=== PATIENT | female | born 1955 | race Caucasian/White ===

== ENCOUNTER 2021-05-04 15:02 | Inpatient (IN) | payer OTHER, SELFPAY ==
--- NOTE | ~2021-05-04 | XR_ITS ---
EXAMINATION: XR CHEST CLINICAL INFORMATION: Psych COMPARISON: None TECHNIQUE: Frontal portable view of the chest was obtained. 5:49 PM FINDINGS: Lungs are clear. No pulmonary vascular congestion. There is no pleural effusion. The heart size is normal. The cardiac and mediastinal contours are normal. There are calcifications of the thoracic aorta. There are multilevel degenerative changes of dorsal spine. Surgical clips right upper quadrant of abdomen. XR/XR chest 1V IMPRESSION: Unremarkable examination.
--- NOTE | ~2021-05-04 | CT_ITS ---
EXAMINATION: CT HEAD WITHOUT CONTRAST CLINICAL INFORMATION: AMS. COMPARISON: None TECHNIQUE: Contiguous axial imaging was performed from the skull base to vertex without intravenous administration of contrast. This CT examination was performed using dose optimization techniques as appropriate, variously including the following: *Automated exposure control *Adjustment of mA and/or kV according to patient size (this includes techniques or standardized protocols for targeted exams where dose is matched to indication/reason for exam; i.e. extremities or head) *Use of iterative reconstruction technique DLP: 692 mGy-cm FINDINGS: There is no acute intra-axial, extra-axial bleed, masses or midline shift. There is no acute infarction in evolution. There is diffuse peripheral reticular hypodensity in both several hemispheres without mass effect. No edema. The lateral ventricles are symmetrical in size and are enlarged. Mild prominence of cortical sulci are seen. Bone windows reveal no calvarial abnormality. Bilateral paranasal sinuses and mastoid air cells are well aerated. CT/CT head/brain wo con IMPRESSION: No acute intracranial process seen. 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
[2021-05-04 15:04] VITALS: BP 163/89; PULSE 125; RESP 24; TEMP 36.8; O2SAT 95; BMI 29.5
--- NOTE | 2021-05-04 15:21 | PC.NURSE ---
HCP Sukhi (daughter in [place]) paperwork with pt, phone [phone], call for history
--- NOTE | 2021-05-04 15:24 | ECG_ITS ---
Test Reason : OVERDOSE Blood Pressure : / mmHG Vent. Rate : 111 BPM Atrial Rate : 111 BPM P-R Int : 164 ms QRS Dur : 082 ms QT Int : 342 ms P-R-T Axes : 045 016 056 degrees QTc Int : 465 ms Sinus tachycardia Cannot rule out Inferior infarct , age undetermined Cannot rule out Anterior infarct , age undetermined Abnormal ECG No previous ECGs available Referred By: Shalini Orourke Electronically Signed By:JSOÉ LYNCH
[2021-05-04 15:56] LABS: MANUAL DIFF FLAG NO
[2021-05-04 16:00] LABS: Basophils Percent Auto 0.5 % (0-2); Eosinophils Percent Auto 0.1 % (0-4); Hematocrit 44.1 % (37-47); Hemoglobin 14.2 g/dl (12.0-16.0); Imm Gran Abs Auto 0.02 X10*3/uL (0.00-0.03); Imm Gran Pct Auto 0.3 % (0.0-0.4); Lymphocytes Absolute Auto 1.7 X10*3/uL (1.2-4.9); Lymphocytes Percent Auto 22.9 % (20-40); Mean Corpuscular HGB Conc 32.2 g/dl (31.0-35.0); Mean Corpuscular Volume 80.6 fL (80-98); Mean Platelet Volume 9.3 fL (9.4-12.3); Monocytes Absolute Auto 0.5 X10*3/uL (0.1-1.2); Monocytes Percent Auto 6.2 % (2-11); Neutrophils Absolute Auto 5.2 X10*3/uL (2.0-8.3); Platelet Count 295 X10*3/uL (160-400); Red Blood Count 5.47 X10*6/uL (4.20-5.50); Red Cell Distribution Width 13.2 % (11.0-16.0); White Blood Count 7.4 X10*3/uL (4.8-10.8)
[2021-05-04 16:03] LABS: VBG Base Excess -5.1 mmol/L; VBG HCO3 18 mmol/L (22-26); VBG pCO2 29 mmHg; VBG pH 7.39 (7.32-7.43); VBG pO2 40 mmHg
[2021-05-04 16:04] LABS: Venous Blood Gas Refer to POC result
[2021-05-04] MEDS: LORazepam 2 MG/ML VIAL IVPUSH (16:04)
[2021-05-04] MEDS: 0.9 % Sodium Chloride 1,000 ML 999 ML IVCONT (16:06)
[2021-05-04 16:17] LABS: COVID-19 Test Negative (Negative); IDNOW Serial# 9DD0AD1C
[2021-05-04 16:30] LABS: Ammonia 27 umol/L (13-55)
[2021-05-04 16:30] LABS: Ethanol < 10 mg/dL
[2021-05-04 16:35] LABS: Alanine Aminotransferase 9 U/L (0-31); Albumin Level 4.7 g/dL (3.5-5.0); Alkaline Phosphatase 120 U/L (39-117); Aspartate Amino Transferase 16 U/L (5-31); Bilirubin Direct 0.3 mg/dL (0.0-0.5); Bilirubin Total 0.7 mg/dL (0.0-1.0); Lipase 29 U/L (8-78); Magnesium 1.8 mg/dL (1.6-2.6); Salicylate < 5.0 mg/dL (15-30); Total Protein 7.5 g/dL (6.5-8.0)
[2021-05-04 16:40] LABS: Acetaminophen LAB < 1 mcg/mL (<30); Anion Gap 22 (12-20); Blood Urea Nitrogen 8 mg/dL (9-16); Calcium 9.9 mg/dL (8.4-10.2); Carbon Dioxide 18 mmol/L (22-29); Chloride 103 mmol/L (96-108); Estimated Glomerular Filt Rate > 60; Glucose Random 130 mg/dL (60-115); Potassium 3.9 mmol/L (3.3-5.1); Sodium 139 mmol/L (135-145)
[2021-05-04 16:56] LABS: TSH reflex Free T4 0.92 uIU/mL (0.32-4.0)
--- NOTE | 2021-05-04 17:39 | ED_ITS ---
HPI - Psych General Chief Complaint: Psychiatric Symptoms <ROBERTO CARLOS Pollock - Last Filed: 05/04/21 18:00> Stated Complaint: MED OVERDOSE <ROBERTO CARLOS Pollock Last Filed: 05/04/21 18:00> Time Seen by Provider: 05/04/21 15:23 <ROBERTO CARLOS Pollock Last Filed: 05/04/21 18:00> Source: patient and family <ROBERTO CARLOS Pollock Last Filed: 05/04/21 18:00> Mode of arrival: ambulatory <ROBERTO CARLOS Pollock Last Filed: 05/04/21 18:00> History of Present Illness HPI Narrative: 66-year-old female with past medical history of unknown psychiatric diagnosis's, presenting to the ED brought in by sister for medication noncompliance x2 weeks, visual and auditory hallucinations, increased confusion/outbursts. Sister reports patient recently moved from [place], does not know her medical history, believes patient has been noncompliant with her p sychiatric medications however has been misusing Klonopin/benzos and possibly opiates. Patient denies SI/HI. Admits to marijuana use, denies other illicit substances or EtOH. Denies CP/SOB, abdominal pain past nausea/vomiting. Patient herself denies misusing medications/missing doses of medications. <ROBERTO CARLOS Pollock Last Filed: 05/04/21 18:00> Related Data Allergies/Adverse Reactions: Allergies Allergy/AdvReac Type Severity Reaction Status Date / Time No Known Allergies Allergy Verified 05/04/21 15:15 <ROBERTO CARLOS Pollock Last Filed: 05/04/21 18:00> Review of Systems Review of Systems: Constitutional: No Fever, No Chills Cardiovascular: No Chest Pain, No SOB Respiratory: No Cough Gastrointestinal: No Nausea, No Vomiting, No Diarrhea, No Abdominal pain Musculoskeletal: No joint pain, No Myalgias Skin: No Skin Lesions, No rash Neuro: No Weakness, No Numbness, No Headache Psych: No Anxiety/Panic, No Depression, No SI/HI, +AH/VH <ROBERTO CARLOS Pollock Last Filed: 05/04/21 18:00> Yes all other systems are reviewed and are negative <ROBERTO CARLOS Pollock Last Filed: 05/04/21 18:00> PMFSH Past Medical History Attestation statement: The following information was validated with the patient. <ROBERTO CARLOS Pollock - Last Filed: 05/04/21 18:00> Medical History: Medical History (Updated 05/04/21 @ 15:14 by Larisa De Paz) History of broken leg Hx of rheumatic fever Psychiatric diagnosis <ROBERTO CARLOS Pollock - Last Filed: 05/04/21 18:00> Surgical History: Surgical History (Updated 05/04/21 @ 15:14 by Larisa De Paz) H/O left knee surgery H/O lumbosacral spine surgery <ROBERTO CARLOS Pollock - Last Filed: 05/04/21 18:00> Social History Social History: Social History Advance Directives: Yes Advance Directives Information Provided: Yes Advance Directives on File: No <ROBERTO CARLOS Pollock - Last Filed: 05/04/21 18:00> Physical Exam Vital Signs: Vital Signs: Last Vital Signs Temp 97.5 F 05/04/21 20:16 Pulse 95 05/04/21 20:16 Resp 18 05/04/21 20:16 BP 151/83 H 05/04/21 20:16 Pulse Ox 96 05/04/21 20:16 Body Mass Index 29.5 <ROBERTO CARLOS Pollock - Last Filed: 05/04/21 18:00> Vital Signs: Last Vital Signs Temp 97.5 F 05/04/21 20:16 Pulse 95 05/04/21 20:16 Resp 18 05/04/21 20:16 BP 151/83 H 05/04/21 20:16 Pulse Ox 96 05/04/21 20:16 Body Mass Index 29.5 <ROBERTO CARLOS Rogers - Last Filed: 05/04/21 20:24> Const: General: cooperative <ROBERTO CARLOS Pollock - Last Filed: 05/04/21 18:00> Orientation/consciousness: oriented to person and oriented to place <ROBERTO CARLOS Pollock - Last Filed: 05/04/21 18:00> Limitations: no limitations <ROBERTO CARLOS Pollock - Last Filed: 05/04/21 18:00> HENMT: Head: Yes normal to inspection and Yes atraumatic <ROBERTO CARLOS Pollock - Last Filed: 05/04/21 18:00> Ears: hearing grossly normal bilaterally <Ekaterina Dheeraj RI - Last Filed: 05/04/21 18:00> General nose exam: Normal external nose present <Ekaterina Esqueda [facility] Last Filed: 05/04/21 18:00> Face and sinus: Yes normal facial exam <Ekaterina Esqueda [facility] Last Filed: 05/04/21 18:00> Eyes: General: appearance normal, both eyes and all related structures <Ekaterina Esqueda [facility] Last Filed: 05/04/21 18:00> EOM: EOMs intact bilaterally <Ekaterina Esqueda [facility] Last Filed: 05/04/21 18:00> Neck: Neck: Yes normal visual inspection and Yes no meningeal signs <Ekaterina Esqueda [facility] Last Filed: 05/04/21 18:00> Resp: Effort & Inspection: normal respiratory effort <Ekaterina Esqueda [facility] Last Filed: 05/04/21 18:00> Auscultation: clear to auscultation bilaterally, no crackles, no rales and no wheezes <Ekaterina Esqueda [facility] Last Filed: 05/04/21 18:00> Cardio: Rate: tachycardic <Ekaterina Esqueda [facility] Last Filed: 05/04/21 18:00> Heart sounds: S1 normal heart sound present and S2 normal heart sound present <Ekaterina Esqueda [facility] Last Filed: 05/04/21 18:00> GI: Inspection: Yes normal to inspection <Ekaterina Esqueda [facility] Last Filed: 05/04/21 18:00> Palpation (GI): Soft to palpation, nontender, no guarding and not rigid <Ekaterina Esqueda [facility] Last Filed: 05/04/21 18:00> Skin: Rashes: no rashes <Ekaterina Esqueda [facility] Last Filed: 05/04/21 18:00> Wounds: no wounds <Ekaterina Esqueda [facility] Last Filed: 05/04/21 18:00> Neuro: General: oriented to person, oriented to place, tone normal, moves all extremities, no meningeal signs and no focal motor deficits <Ekaterina Esqueda [facility] Last Filed: 05/04/21 18:00> Gait exam (Neuro): Normal gait present <ROBERTO CARLOS Pollock Last Filed: 05/04/21 18:00> Extrem: General: Yes normal to inspection <ROBERTO CARLOS Pollock Last Filed: 05/04/21 18:00> Psych: Speech and movement: Restless speech present <ROBERTO CARLOS Pollock Last Filed: 05/04/21 18:00> Thought process: Flight of ideas present and Tangential thought process present <ROBERTO CARLOS Pollock Last Filed: 05/04/21 18:00> Thought content: suicidality, no homicidality, Hallucination(s) present auditory and visual and Compulsions present (thought content) <ROBERTO CARLOS Pollock Last Filed: 05/04/21 18:00> Insight: Limited insight present (Psych) <ROBERTO CARLOS Pollock Last Filed: 05/04/21 18:00> Judgement: Limited judgement present (Psych) <ROBERTO CARLOS Pollock Last Filed: 05/04/21 18:00> Course Course Course Narrative: - no leukocytosis, H&H stable, mild anion gap of 22 - ammonia WNL, labs otherwise unremarkable -tox screen negative for salicylates, acetaminophen, and alcohol CT head/brain wo con IMPRESSION: No acute intracranial process seen. 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 -1800--ED care transferred to ROBERTO CARL[facility] pending drug screen, lactic, UA, and care team evaluation <ROBERTO CARLOS Pollock Last Filed: 05/04/21 18:00> Signed out from Ekaterina Esqueda PA-C. Mildly elevated anion gap noted, her lactic acid and VBG are unremarkable. She continues to be non-sensical, pacing around and hyperverbal. 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 She reportedly [facility] not [facility] and we are still awaiting records from the other health center in [place]. At this time patient is medic ally cleared. Seen by Brenda from the CARE team and a section [address] Physician observation started at 8:20pm. Patient placed in physician observation because patient is awaiting [facility] evaluation for the possible need of inpatient psych admission. At the time observation was started patient's vital signs were stable. Patient is alert. Neuro exam is non-focal. CV: RRR and lungs are clear. Will continue to monitor. Will also place a Psych consult for medication recommendations. <ROBERTO CARLOS Rogers - Last Filed: 05/04/21 20:24> Consultations Consultation #1: CARE team <ROBERTO CARLOS Rogers - Last Filed: 05/04/21 20:24> MDM - Psych MDM Narrative Medical decision making narrative: 66-year-old female with past medical history of unknown psychiatric diagnosis's, presenting to the ED brought in by sister for medication noncompliance x2 weeks, visual and auditory hallucinations, increased confusion/outbursts. On exam initially tachycardic, tachypneic, restless, having active auditory/visual hallucinations on exam, restless. Concern for medication noncompliance vs withdrawal from benzos. Rule out other me tabolic/infectious etiology and ICH/mass or panic causes Patient's records were requested from [facility]/facilities Plan: EKG, labs, UA, CXR, head CT, drug screen, care Team consult <ROBERTO CARLOS Pollock - Last Filed: 05/04/21 18:00> Lab Data Result diagrams: : 05/04/21 15:52 05/04/21 15:52 <ROBERTO CARLOS Pollock - Last Filed: 05/04/21 18:00> Labs: Lab Results 05/04/21 05/04/21 05/04/21 Range/Units 15:51 15:52 15:52 WBC 7.4 (4.8-10.8) X10*3/uL RBC 5.47 (4.20-5.50) X10*6/uL Hgb 14.2 (12.0-16.0) g/dl Hct 44.1 (37-47) % MCV 80.6 (80-98) fL MCH 26.0 L (27.0-33.0) pg MCHC 32.2 (31.0-35.0) g/dl RDW 13.2 (11.0-16.0) % Plt Count 295 (160-400) X10*3/uL MPV 9.3 L (9.4-12.3) fL Immature Gran % (Auto) 0.3 (0.0-0.4) % Neut % (Auto) 70.0 (45-73) % Lymph % (Auto) 22.9 (20-40) % [place] % (Auto) 6.2 (2-11) % Eos % (Auto) 0.1 (0-4) % Baso % (Auto) 0.5 (0-2) % Lymph # (Auto) 1.7 (1.2-4.9) X10*3/uL [place] # (Auto) 0.5 (0.1-1.2) X10*3/uL Eos # (Auto) 0.0 (0.0-0.4) X10*3/uL Baso # (Auto) 0.0 (0.0-0.2) X10*3/uL Abs Immat Gran (auto) 0.02 (0.00-0.03) X10*3/uL Absolute Neuts (auto) 5.2 (2.0-8.3) X10*3/uL Absolute Nucleated RBC 0.000 (0.0-0.012) X10*3/uL Nucleated RBC % (auto) 0.0 (0.0-0.2) /100WBC VBG pH (7.32-7.43) VBG pCO2 mmHg VBG pO2 mmHg VBG HCO3 (22-26) mmol/L VBG O2 Saturation % VBG Base Excess mmol/L Sodium 139 (135-145) mmol/L Potassium 3.9 (3.3-5.1) mmol/L Chloride 103 (96-108) mmol/L Carbon Dioxide 18 L (22-29) mmol/L Anion Gap 22 H (12-20) BUN 8 L (9-16) mg/dL Creatinine 0.83 (0.5-1.4) mg/dL Estim Creat Clear Calc 80.0 Estimated GFR > 60 Random Glucose 130 H (60-115) mg/dL Lactic Acid (0.5-2.0) mmol/L Calcium 9.9 (8.4-10.2) mg/dL Magnesium (1.6-2.6) mg/dL Total Bilirubin (0.0-1.0) mg/dL Direct Bilirubin (0.0-0.5) mg/dL AST (5-31) U/L ALT (0-31) U/L Alkaline Phosphatase (39-117) U/L Ammonia 27 (13-55) umol/L Total Protein (6.5-8.0) g/dL Albumin (3.5-5.0) g/dL Lipase (8-78) U/L TSH (0.32-4.0) uIU/mL Salicylates (15-30) mg/dL Acetaminophen < 1 (<30) mcg/mL Ethyl Alcohol mg/dL COVID-19 ([facility]) (Negative) COVID-19 Clin Com 05/04/21 05/04/21 05/04/21 Range/Units 15:52 15:52 15:52 WBC (4.8-10.8) X10*3/uL RBC (4.20-5.50) X10*6/uL Hgb (12.0-16.0) g/dl Hct (37-47) % MCV (80-98) fL MCH (27.0-33.0) pg MCHC (31.0-35.0) g/dl RDW (11.0-16.0) % Plt Count (160-400) X10*3/uL MPV (9.4-12.3) fL Immature Gran % (Auto) (0.0-0.4) % Neut % (Auto) (45-73) % Lymph % (Auto) (20-40) % [place] % (Auto) (2-11) % Eos % (Auto) (0-4) % Baso % (Auto) (0-2) % Lymph # (Auto) (1.2-4.9) X10*3/uL [place] # (Auto) (0.1-1.2) X10*3/uL Eos # (Auto) (0.0-0.4) X10*3/uL Baso # (Auto) (0.0-0.2) X10*3/uL Abs Immat Gran (auto) (0.00-0.03) X10*3/uL Absolute Neuts (auto) (2.0-8.3) X10*3/uL Absolute Nucleated RBC (0.0-0.012) X10*3/uL Nucleated RBC % (auto) (0.0-0.2) /100WBC VBG pH (7.32-7.43) VBG pCO2 mmHg VBG pO2 mmHg VBG HCO3 (22-26) mmol/L VBG O2 Saturation % VBG Base Excess mmol/L Sodium (135-145) mmol/L Potassium (3.3-5.1) mmol/L Chloride (96-108) mmol/L Carbon Dioxide (22-29) mmol/L Anion Gap (12-20) BUN (9-16) mg/dL Creatinine (0.5-1.4) mg/dL Estim Creat Clear Calc Estimated GFR Random Glucose (60-115) mg/dL Lactic Acid (0.5-2.0) mmol/L Calcium (8.4-10.2) mg/dL Magnesium 1.8 (1.6-2.6) mg/dL Total Bilirubin 0.7 (0.0-1.0) mg/dL Direct Bilirubin 0.3 (0.0-0.5) mg/dL AST 16 (5-31) U/L ALT 9 (0-31) U/L Alkaline Phosphatase 120 H (39-117) U/L Ammonia (13-55) umol/L Total Protein 7.5 (6.5-8.0) g/dL Albumin 4.7 (3.5-5.0) g/dL Lipase 29 (8-78) U/L TSH 0.92 (0.32-4.0) uIU/mL Salicylates < 5.0 L (15-30) mg/dL Acetaminophen (<30) mcg/mL Ethyl Alcohol < 10 mg/dL COVID-19 ([facility]) Negative (Negative) COVID-19 Clin Com See Note 05/04/21 05/04/21 Range/Units 15:55 19:26 WBC (4.8-10.8) X10*3/uL RBC (4.20-5.50) X10*6/uL Hgb (12.0-16.0) g/dl Hct (37-47) % MCV (80-98) fL MCH (27.0-33.0) pg MCHC (31.0-35.0) g/dl RDW (11.0-16.0) % Plt Count (160-400) X10*3/uL MPV (9.4-12.3) fL Immature Gran % (Auto) (0.0-0.4) % Neut % (Auto) (45-73) % Lymph % (Auto) (20-40) % [place] % (Auto) (2-11) % Eos % (Auto) (0-4) % Baso % (Auto) (0-2) % Lymph # (Auto) (1.2-4.9) X10*3/uL [place] # (Auto) (0.1-1.2) X10*3/uL Eos # (Auto) (0.0-0.4) X10*3/uL Baso # (Auto) (0.0-0.2) X10*3/uL Abs Immat Gran (auto) (0.00-0.03) X10*3/uL Absolute Neuts (auto) (2.0-8.3) X10*3/uL Absolute Nucleated RBC (0.0-0.012) X10*3/uL Nucleated RBC % (auto) (0.0-0.2) /100WBC VBG pH 7.39 (7.32-7.43) VBG pCO2 29 mmHg VBG pO2 40 mmHg VBG HCO3 18 L (22-26) mmol/L VBG O2 Saturation 70.0 % VBG Base Excess -5.1 mmol/L Sodium (135-145) mmol/L Potassium (3.3-5.1) mmol/L Chloride (96-108) mmol/L Carbon Dioxide (22-29) mmol/L Anion Gap (12-20) BUN (9-16) mg/dL Creatinine (0.5-1.4) mg/dL Estim Creat Clear Calc Estimated GFR Random Glucose (60-115) mg/dL Lactic Acid 1.6 (0.5-2.0) mmol/L Calcium (8.4-10.2) mg/dL Magnesium (1.6-2.6) mg/dL Total Bilirubin (0.0-1.0) mg/dL Direct Bilirubin (0.0-0.5) mg/dL AST (5-31) U/L ALT (0-31) U/L Alkaline Phosphatase (39-117) U/L Ammonia (13-55) umol/L Total Protein (6.5-8.0) g/dL Albumin (3.5-5.0) g/dL Lipase (8-78) U/L TSH (0.32-4.0) uIU/mL Salicylates (15-30) mg/dL Acetaminophen (<30) mcg/mL Ethyl Alcohol mg/dL COVID-19 ([facility]) (Negative) COVID-19 Clin Com <ROBERTO CARLOS Pollock - Last Filed: 05/04/21 18:00> Lab Results 05/04/21 05/04/21 05/04/21 Range/Units 15:51 15:52 15:52 WBC 7.4 (4.8-10.8) X10*3/uL RBC 5.47 (4.20-5.50) X10*6/uL Hgb 14.2 (12.0-16.0) g/dl Hct 44.1 (37-47) % MCV 80.6 (80-98) fL MCH 26.0 L (27.0-33.0) pg MCHC 32.2 (31.0-35.0) g/dl RDW 13.2 (11.0-16.0) % Plt Count 295 (160-400) X10*3/uL MPV 9.3 L (9.4-12.3) fL Immature Gran % (Auto) 0.3 (0.0-0.4) % Neut % (Auto) 70.0 (45-73) % Lymph % (Auto) 22.9 (20-40) % [place] % (Auto) 6.2 (2-11) % Eos % (Auto) 0.1 (0-4) % Baso % (Auto) 0.5 (0-2) % Lymph # (Auto) 1.7 (1.2-4.9) X10*3/uL [place] # (Auto) 0.5 (0.1-1.2) X10*3/uL Eos # (Auto) 0.0 (0.0-0.4) X10*3/uL Baso # (Auto) 0.0 (0.0-0.2) X10*3/uL Abs Immat Gran (auto) 0.02 (0.00-0.03) X10*3/uL Absolute Neuts (auto) 5.2 (2.0-8.3) X10*3/uL Absolute Nucleated RBC 0.000 (0.0-0.012) X10*3/uL Nucleated RBC % (auto) 0.0 (0.0-0.2) /100WBC VBG pH (7.32-7.43) VBG pCO2 mmHg VBG pO2 mmHg VBG HCO3 (22-26) mmol/L VBG O2 Saturation % VBG Base Excess mmol/L Sodium 139 (135-145) mmol/L Potassium 3.9 (3.3-5.1) mmol/L Chloride 103 (96-108) mmol/L Carbon Dioxide 18 L (22-29) mmol/L Anion Gap 22 H (12-20) BUN 8 L (9-16) mg/dL Creatinine 0.83 (0.5-1.4) mg/dL Estim Creat Clear Calc 80.0 Estimated GFR > 60 Random Glucose 130 H (60-115) mg/dL Lactic Acid (0.5-2.0) mmol/L Calcium 9.9 (8.4-10.2) mg/dL Magnesium (1.6-2.6) mg/dL Total Bilirubin (0.0-1.0) mg/dL Direct Bilirubin (0.0-0.5) mg/dL AST (5-31) U/L ALT (0-31) U/L Alkaline Phosphatase (39-117) U/L Ammonia 27 (13-55) umol/L Total Protein (6.5-8.0) g/dL Albumin (3.5-5.0) g/dL Lipase (8-78) U/L TSH (0.32-4.0) uIU/mL Salicylates (15-30) mg/dL Acetaminophen < 1 (<30) mcg/mL Ethyl Alcohol mg/dL COVID-19 ([facility]) (Negative) COVID-19 Clin Com 05/04/21 05/04/21 05/04/21 Range/Units 15:52 15:52 15:52 WBC (4.8-10.8) X10*3/uL RBC (4.20-5.50) X10*6/uL Hgb (12.0-16.0) g/dl Hct (37-47) % MCV (80-98) fL MCH (27.0-33.0) pg MCHC (31.0-35.0) g/dl RDW (11.0-16.0) % Plt Count (160-400) X10*3/uL MPV (9.4-12.3) fL Immature Gran % (Auto) (0.0-0.4) % Neut % (Auto) (45-73) % Lymph % (Auto) (20-40) % [place] % (Auto) (2-11) % Eos % (Auto) (0-4) % Baso % (Auto) (0-2) % Lymph # (Auto) (1.2-4.9) X10*3/uL [place] # (Auto) (0.1-1.2) X10*3/uL Eos # (Auto) (0.0-0.4) X10*3/uL Baso # (Auto) (0.0-0.2) X10*3/uL Abs Immat Gran (auto) (0.00-0.03) X10*3/uL Absolute Neuts (auto) (2.0-8.3) X10*3/uL Absolute Nucleated RBC (0.0-0.012) X10*3/uL Nucleated RBC % (auto) (0.0-0.2) /100WBC VBG pH (7.32-7.43) VBG pCO2 mmHg VBG pO2 mmHg VBG HCO3 (22-26) mmol/L VBG O2 Saturation % VBG Base Excess mmol/L Sodium (135-145) mmol/L Potassium (3.3-5.1) mmol/L Chloride (96-108) mmol/L Carbon Dioxide (22-29) mmol/L Anion Gap (12-20) BUN (9-16) mg/dL Creatinine (0.5-1.4) mg/dL Estim Creat Clear Calc Estimated GFR Random Glucose (60-115) mg/dL Lactic Acid (0.5-2.0) mmol/L Calcium (8.4-10.2) mg/dL Magnesium 1.8 (1.6-2.6) mg/dL Total Bilirubin 0.7 (0.0-1.0) mg/dL Direct Bilirubin 0.3 (0.0-0.5) mg/dL AST 16 (5-31) U/L ALT 9 (0-31) U/L Alkaline Phosphatase 120 H (39-117) U/L Ammonia (13-55) umol/L Total Protein 7.5 (6.5-8.0) g/dL Albumin 4.7 (3.5-5.0) g/dL Lipase 29 (8-78) U/L TSH 0.92 (0.32-4.0) uIU/mL Salicylates < 5.0 L (15-30) mg/dL Acetaminophen (<30) mcg/mL Ethyl Alcohol < 10 mg/dL COVID-19 ([facility]) Negative (Negative) COVID-19 Clin Com See Note 05/04/21 05/04/21 Range/Units 15:55 19:26 WBC (4.8-10.8) X10*3/uL RBC (4.20-5.50) X10*6/uL Hgb (12.0-16.0) g/dl Hct (37-47) % MCV (80-98) fL MCH (27.0-33.0) pg MCHC (31.0-35.0) g/dl RDW (11.0-16.0) % Plt Count (160-400) X10*3/uL MPV (9.4-12.3) fL Immature Gran % (Auto) (0.0-0.4) % Neut % (Auto) (45-73) % Lymph % (Auto) (20-40) % [place] % (Auto) (2-11) % Eos % (Auto) (0-4) % Baso % (Auto) (0-2) % Lymph # (Auto) (1.2-4.9) X10*3/uL [place] # (Auto) (0.1-1.2) X10*3/uL Eos # (Auto) (0.0-0.4) X10*3/uL Baso # (Auto) (0.0-0.2) X10*3/uL Abs Immat Gran (auto) (0.00-0.03) X10*3/uL Absolute Neuts (auto) (2.0-8.3) X10*3/uL Absolute Nucleated RBC (0.0-0.012) X10*3/uL Nucleated RBC % (auto) (0.0-0.2) /100WBC VBG pH 7.39 (7.32-7.43) VBG pCO2 29 mmHg VBG pO2 40 mmHg VBG HCO3 18 L (22-26) mmol/L VBG O2 Saturation 70.0 % VBG Base Excess -5.1 mmol/L Sodium (135-145) mmol/L Potassium (3.3-5.1) mmol/L Chloride (96-108) mmol/L Carbon Dioxide (22-29) mmol/L Anion Gap (12-20) BUN (9-16) mg/dL Creatinine (0.5-1.4) mg/dL Estim Creat Clear Calc Estimated GFR Random Glucose (60-115) mg/dL Lactic Acid 1.6 (0.5-2.0) mmol/L Calcium (8.4-10.2) mg/dL Magnesium (1.6-2.6) mg/dL Total Bilirubin (0.0-1.0) mg/dL Direct Bilirubin (0.0-0.5) mg/dL AST (5-31) U/L ALT (0-31) U/L Alkaline Phosphatase (39-117) U/L Ammonia (13-55) umol/L Total Protein (6.5-8.0) g/dL Albumin (3.5-5.0) g/dL Lipase (8-78) U/L TSH (0.32-4.0) uIU/mL Salicylates (15-30) mg/dL Acetaminophen (<30) mcg/mL Ethyl Alcohol mg/dL COVID-19 ([facility]) (Negative) COVID-19 Clin Com <ROBERTO CARLOS Rogers - Last Filed: 05/04/21 20:24>
[2021-05-04] MEDS: LORazepam 2 MG/ML VIAL 1 MG IVPUSH (18:02)
--- NOTE | 2021-05-04 18:04 | MHC.CARE ---
Pt has [employer] Medicare PPO and will be evaluated by the CARE team.
[2021-05-04 20:06] LABS: Lactic Acid 1.6 mmol/L (0.5-2.0)
[2021-05-04 20:16] VITALS: BP 151/83; PULSE 95; RESP 18; TEMP 36.4; O2SAT 96
--- NOTE | 2021-05-04 20:22 | MHC.CARE ---
CARE team completed evaluation. Disposition is for inpt psychiatric treatment. Plan of care reviewed with ED physician and Sect 12a has been completed and placed in pt's chart for containment pending admission. Pt is a [place] and had been connected with services through the [facility] and [facility] in [place] prior to relocating to [place] in February. 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 [facility] in [place] contacted next and will be faxing a form to be completed and returned with assessments and medical documentation for the [facility] doctor to review for possible admission.
--- NOTE | 2021-05-04 20:53 | PC.NURSE ---
Patient just got transferred from main ED, patient is upset for being here in the POD, care team had assessed the patient, disposition section [facility] bed search, will continue to monitor.
--- NOTE | 2021-05-04 21:28 | PC.NURSE ---
Patient recently moved to the area no pharmacy claim history, sister Jessica called, read all the medications patient is on, list was read back to the sister, then confirms it. Med rec updated.
[2021-05-04] MEDS: LORazepam 1 MG TABLET PO (21:37)
[2021-05-04] MEDS: OLANZapine 5 MG TABLET PO (21:37)
[2021-05-04] MEDS: busPIRone HCl 5 MG TABLET 15 MG PO (21:42)
[2021-05-04] MEDS: hydrOXYzine HCL 50 MG TABLET 100 MG PO (21:43)
--- NOTE | 2021-05-04 22:14 | MHC.CARE ---
Referral packet faxed to [facility] for review.
[2021-05-05] VITALS (8 sets, daily range): BP systolic 143–154; BP diastolic 72–84; PULSE 22–127; RESP 18–118; TEMP 36.3–36.5; O2SAT 95–98
--- NOTE | 2021-05-05 05:53 | PC.NURSE ---
Patient is up since 5 am, in and out of her room multiple times, intermittently disrobing herself requires constant redirection, patient [id number], patient is manic, intrusive, and loud at time. Will continue to monitor.
--- NOTE | 2021-05-05 07:09 | PC.NURSE ---
patient appears in no distress, patient awake now calls out periodically whats going on? presented with breakfast
[2021-05-05] MEDS: busPIRone HCl 5 MG TABLET 15 MG PO ×3 (08:26→21:17)
[2021-05-05] MEDS: Topiramate 100 MG TABLET 200 MG PO (08:28)
[2021-05-05] MEDS: hydrOXYzine HCL 50 MG TABLET 100 MG PO ×2 (08:28→21:17)
[2021-05-05] MEDS: OLANZapine 5 MG TABLET PO (09:23)
[2021-05-05] MEDS: LORazepam 1 MG TABLET 2 MG PO (10:18)
[2021-05-05] MEDS: LORazepam 1 MG TABLET PO (12:56)
[2021-05-05] MEDS: Haloperidol Lactate 5 MG/ML VIAL IM (15:58)
[2021-05-05] MEDS: diphenhydrAMINE HCL 50 MG/ML VIAL IM (15:58)
--- NOTE | 2021-05-05 15:58 | MHC.CARE ---
CARE Team called [facility] multiple times. Plan for Pt to be admitted to S1 as Pt has medical insurance .
--- NOTE | 2021-05-05 16:13 | PC.NURSE ---
Pt becoming increasingly agitated, yelling, nonsensical, pacing, walking into other patient's rooms, banging on the doors. PA notified, haldol 5MG and benadryl 50 MG IM (see eMAR)
--- NOTE | 2021-05-05 19:45 | PC.NURSE ---
Patient wandering in POD, at time completely disrobed, patient psychotic, requires constant redirection, [id number] minimally, pending [facility] admission, will continue to monitor.
--- NOTE | 2021-05-06 04:28 | PC.ADMIT ---
Pt. arrived on the unit at 2019 from the ED. She is a section 12A. Pt. alert to person only. Pt. presented with agitated mood and full range affect. Pt. confused. Speech pressured, unorganized and tangential. Pt. escorted to room. Pt. unable to participate in admission due to confusion, agitation, auditory and visual hallucinations. Pt. took HS medications hydroxyzine and buspirone. Pt. up throughout the shift in room. Pt. yelling out at times responding to AH/VH. Pt. does not attempt to leave the room. She ambulates independently. Gait is jerry and unsteady at times. Pt. is a high fall risk. Pt. is on 5 minute safety checks. VS upon admission T97.5, HR118, RR22, 154/74, 95%. RN attempted to medicated pt. with trazodone. Pt. was responding to internal stimuli and the pt. could not focus on taking the medication. Pt. disrobed in room. She has a blanket over her. Admission paperwork unable to be completed and legals unsigned due to patient's mental status.
[2021-05-06 06:00] VITALS: BP 165/75; PULSE 115; RESP 20; TEMP 36.8; O2SAT 97
[2021-05-06] MEDS: Topiramate 100 MG TABLET 200 MG PO (08:08)
[2021-05-06] MEDS: busPIRone HCl 5 MG TABLET 15 MG PO ×3 (08:09→20:44)
[2021-05-06] MEDS: hydrOXYzine HCL 50 MG TABLET 100 MG PO ×2 (08:09→20:45)
[2021-05-06 08:11] LABS: Estimated Average Glucose 114 mg/dL; Hemoglobin A1c % 5.6 %
[2021-05-06 08:49] LABS: Cholesterol 146 mg/dL; HDL Cholesterol 51 mg/dL; LDL Cholesterol Calculated 79 mg/dl; Triglycerides 84 mg/dL
[2021-05-06] MEDS: LORazepam 1 MG TABLET PO (10:25)
--- NOTE | 2021-05-06 13:50 | HO.PSYADMNOT ---
HPI Chief Complaint: Psychosis Sources of Information: patient interviewed, chart reviewed and crisis/core team assessment reviewed HPI Subjective Notes: Section 12B Narrative: The patient is a 66 year old female, 3 times, mother of adult children (an adult daughter and a son who was adopted when she was a teenager), currently on delirium, restless with pressured speech, unable to provide accurate information at this moment. As per her sister, who brought to the ED, the patient is a who received services at the [place] in [place], but in February 2021, she showed up without any warning. The sister reported to the team that probably she had Bipolar Disorder and she had several prescriptions that she was overusing, most likely Klonopin and probably opioids since she has chronic pain. Her daughter reported that she doesn't know too much about her mother but apparently in [place], she lived with a roomate but the patient has been more aggressive and disruptive after a surgery 1 year ago and she was going to be evicted. On the ED, the patient was aggressive, grossly disorganized, on delirium, uncooperative with staff and she needed to be medicated PO and later IM. Today, I tried to assess her at her bedside, and she was naked, with tremors and thought blocking. I gave her 1 dose of Ativan PO with some improvement. She reported that she takes Klonopin and Topamax and other medications she can't remember, she was a little more cooperative but she was unable to be fully understood due to pressured speech and thought blocking that frustrated the patient. She was unable to sign CV at this moment and she agreed to restart medications. Medical Evaluation Reviewed: Yes [facility] Medical History History of broken leg Hx of rheumatic fever Psychiatric diagnosis Surgical History H/O left knee surgery H/O lumbosacral spine surgery Family History: Unknown. Social History: The patient had a child when she was 15 and she gave for adoption. 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 She was x 3 as per her sister's report and apparently, she is on disability Substance History: Unclear, apparently, she used to abuse prescriptions (opioids? benzodiazepines?) Trauma History: Unknown at this moment. Diagnostics Vital Signs (24Hr): Vital Signs - 24 hr 05/05/21 16:00 05/05/21 16:24 05/05/21 16:40 Temperature Pulse Rate Respiratory Rate 18 18 18 Blood Pressure Pulse Oximetry 05/05/21 16:59 05/05/21 20:00 05/05/21 20:40 Temperature 97.7 F 97.5 F Pulse Rate 127 H 22 L Respiratory Rate 18 20 118 H Blood Pressure 147/84 H 154/74 H Pulse Oximetry 95 95 05/05/21 21:10 05/06/21 06:00 Temperature 97.5 F 98.3 F Pulse Rate 118 H 115 H Respiratory Rate 22 H 20 Blood Pressure 154/74 H 165/75 H Pulse Oximetry 95 97 Body Mass Index 29.5 Labs Results: 05/04/21 15:52 05/04/21 15:52 Labs: Laboratory Results - last 48 hr 05/04/21 05/04/21 05/04/21 15:51 15:52 15:52 WBC 7.4 RBC 5.47 Hgb 14.2 Hct 44.1 MCV 80.6 MCH 26.0 L MCHC 32.2 RDW 13.2 Plt Count 295 MPV 9.3 L Immature Gran % (Auto) 0.3 Neut % (Auto) 70.0 Lymph % (Auto) 22.9 [place] % (Auto) 6.2 Eos % (Auto) 0.1 Baso % (Auto) 0.5 Lymph # (Auto) 1.7 [place] # (Auto) 0.5 Eos # (Auto) 0.0 Baso # (Auto) 0.0 Abs Immat Gran (auto) 0.02 Absolute Neuts (auto) 5.2 Absolute Nucleated RBC 0.000 Nucleated RBC % (auto) 0.0 VBG pH VBG pCO2 VBG pO2 VBG HCO3 VBG O2 Saturation VBG Base Excess Sodium 139 Potassium 3.9 Chloride 103 Carbon Dioxide 18 L Anion Gap 22 H BUN 8 L Creatinine 0.83 Estim Creat Clear Calc 80.0 Estimated GFR > 60 Random Glucose 130 H Estimat Average Glucose Hemoglobin A1c % Lactic Acid Calcium 9.9 Magnesium Total Bilirubin Direct Bilirubin AST ALT Alkaline Phosphatase Ammonia 27 Total Protein Albumin Triglycerides Cholesterol LDL Cholesterol, Calc HDL Cholesterol Lipase TSH Salicylates Acetaminophen < 1 Ethyl Alcohol COVID-19 ([facility]) COVID-19 Clin Com 05/04/21 05/04/21 05/04/21 15:52 15:52 15:52 WBC RBC Hgb Hct MCV MCH MCHC RDW Plt Count MPV Immature Gran % (Auto) Neut % (Auto) Lymph % (Auto) [place] % (Auto) Eos % (Auto) Baso % (Auto) Lymph # (Auto) [place] # (Auto) Eos # (Auto) Baso # (Auto) Abs Immat Gran (auto) Absolute Neuts (auto) Absolute Nucleated RBC Nucleated RBC % (auto) VBG pH VBG pCO2 VBG pO2 VBG HCO3 VBG O2 Saturation VBG Base Excess Sodium Potassium Chloride Carbon Dioxide Anion Gap BUN Creatinine Estim Creat Clear Calc Estimated GFR Random Glucose Estimat Average Glucose Hemoglobin A1c % Lactic Acid Calcium Magnesium 1.8 Total Bilirubin 0.7 Direct Bilirubin 0.3 AST 16 ALT 9 Alkaline Phosphatase 120 H Ammonia Total Protein 7.5 Albumin 4.7 Triglycerides Cholesterol LDL Cholesterol, Calc HDL Cholesterol Lipase 29 TSH 0.92 Salicylates < 5.0 L Acetaminophen Ethyl Alcohol < 10 COVID-19 ([facility]) Negative COVID-19 [facility] See Note 05/04/21 05/04/21 05/06/21 15:55 19:26 07:28 WBC RBC Hgb Hct MCV MCH MCHC RDW Plt Count MPV Immature Gran % (Auto) Neut % (Auto) Lymph % (Auto) [place] % (Auto) Eos % (Auto) Baso % (Auto) Lymph # (Auto) [place] # (Auto) Eos # (Auto) Baso # (Auto) Abs Immat Gran (auto) Absolute Neuts (auto) Absolute Nucleated RBC Nucleated RBC % (auto) VBG pH 7.39 VBG pCO2 29 VBG pO2 40 VBG HCO3 18 L VBG O2 Saturation 70.0 VBG Base Excess -5.1 Sodium Potassium Chloride Carbon Dioxide Anion Gap BUN Creatinine Estim Creat Clear Calc Estimated GFR Random Glucose Estimat Average Glucose 114 Hemoglobin A1c % 5.6 Lactic Acid 1.6 Calcium Magnesium Total Bilirubin Direct Bilirubin AST ALT Alkaline Phosphatase Ammonia Total Protein Albumin Triglycerides Cholesterol LDL Cholesterol, Calc HDL Cholesterol Lipase TSH Salicylates Acetaminophen Ethyl Alcohol COVID-19 ([facility]) COVID-[employer] 05/06/21 07:28 WBC RBC Hgb Hct MCV MCH MCHC RDW Plt Count MPV Immature Gran % (Auto) Neut % (Auto) Lymph % (Auto) [place] % (Auto) Eos % (Auto) Baso % (Auto) Lymph # (Auto) [place] # (Auto) Eos # (Auto) Baso # (Auto) Abs Immat Gran (auto) Absolute Neuts (auto) Absolute Nucleated RBC Nucleated RBC % (auto) VBG pH VBG pCO2 VBG pO2 VBG HCO3 VBG O2 Saturation VBG Base Excess Sodium Potassium Chloride Carbon Dioxide Anion Gap BUN Creatinine Estim Creat Clear Calc Estimated GFR Random Glucose Estimat Average Glucose Hemoglobin A1c % Lactic Acid Calcium Magnesium Total Bilirubin Direct Bilirubin AST ALT Alkaline Phosphatase Ammonia Total Protein Albumin Triglycerides 84 Cholesterol 146 LDL Cholesterol, Calc 79 HDL Cholesterol 51 Lipase TSH Salicylates Acetaminophen Ethyl Alcohol COVID-19 ([facility]) COVID-19 Clin Com Imaging Radiology Impressions: ITS Impressions Head CT 05/04/21 15:25 IMPRESSION: No acute intracranial process seen. 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 Chest X-Ray 05/04/21 17:44 IMPRESSION: Unremarkable examination. Meds/Allergies Meds Home Medications Acetaminophen (Acetaminophen 325 Mg Tablet) 650 mg PO Q6H PRN PRN Reason: Headache/Pain Mild Scale (1-3) Acetaminophen (Acetaminophen 325 Mg Tablet) 650 mg PO Q6H PRN PRN Reason: Headache/Pain Mild Scale (1-3) Al Hydroxide/Mg Hydroxide (Magnesium Hydrox/Alum Hydrox 30 Ml Oral.Susp) 30 ml PO Q6H PRN PRN Reason: Heartburn/Nausea Al Hydroxide/Mg Hydroxide (Magnesium Hydrox/Alum Hydrox 30 Ml Oral.Susp) 30 ml PO Q6H PRN PRN Reason: Heartburn/Nausea Buspirone HCl (Buspirone Hcl 5 Mg Tablet) 15 mg PO TID [facility], [facility] Last Admin: 05/06/21 08:09 Dose: 15 mg Documented by: Clonazepam (Clonazepam 0.5 Mg Tablet) 0.5 mg PO TID [facility] Hydroxyzine HCl (Hydroxyzine Hcl 50 Mg Tablet) 100 mg PO BID [facility] Last Admin: 05/06/21 08:09 Dose: 100 mg Documented by: Magnesium Hydroxide (Milk Of Magnesia 30 Ml Oral.Susp) 30 ml PO DAILY PRN PRN Reason: Constipation Magnesium Hydroxide (Milk Of Magnesia 30 Ml Oral.Susp) 30 ml PO DAILY PRN PRN Reason: Constipation Olanzapine (Olanzapine 7.5 Mg Tablet) 7.5 mg PO BEDTIME JARVIS Topiramate (Topiramate 100 Mg Tablet) 200 mg PO DAILY JARVIS Last Admin: 05/06/21 08:08 Dose: 200 mg Documented by: Trazodone HCl (Trazodone Hcl 50 Mg Tablet) 50 mg PO BEDTIME PRN PRN Reason: Insomnia Allergies Allergies Allergy/AdvReac Type Severity Reaction Status Date / Time No Known Allergies Allergy Verified 05/04/21 15:15 Mental Status Exam Mental Status Exam Patient Appearance: Disheveled, Inappropriate (naked, agreed to put hospital gowns with help of staff) and Unkempt Patient Orientation: Person and Place Level of Consciousness: Drowsy and Restless Patient Behavior: Suspicious, Restless and Confused Mood Description: Depressed (dysphoric) Affect Description: Labile, Nervous and Apprehensive Patient Cognition Impaired: No Ability to Follow Directions: Poor Speech Pattern: Slurred, Impoverished, Difficulty Finding Words and Rapid Hallucinations: None Delusions: Paranoid Ideation Thought Process: Confusion (tangential) Thought Content: positive for Poverty of Content and positive for Incoherent Judgement: Poor Assessment & Plan Assessment & Plan (1) Acute psychosis: Status: Acute Code(s): F23 - Brief psychotic disorder Assessment and Plan: Middle age female with acute psychosis, grossly disorganized, probably on delirium due to drug withdrawal, unable to take care of herself. Plan: COWS Start Klonopin 0.5 mg po tid Start Zyprexa 5 mg po qhs as a mood stabilizer/antipsychotic (2) Mood disorder: Status: Acute Code(s): F39 - Unspecified mood [affective] disorder (3) Benzodiazepine abuse: Status: Acute Code(s): F13.10 - Sedative, hypnotic or anxiolytic abuse, uncomplicated Informed Consent: does not understand (on Section 12b, unable to sign CV at this moment) Reason for continued inpatient stay Substantial Risk for: harm to self, harm to others, inability to function, rapid decompensation and med/psych decompensation
[2021-05-06] MEDS: Acetaminophen 325 MG TABLET 650 MG PO ×2 (14:11→20:47)
[2021-05-06] MEDS: clonazePAM 0.5 MG TABLET PO ×2 (14:11→20:46)
--- NOTE | 2021-05-06 18:20 | PC.NURSE ---
Pt responding to internal stimuli, reaching out in the air to grab things, grabbing at blankets and appearing to hold them out for someone to take. Pt not answering direct questions, unable to participate actively in assessments. Pt talking nonsensically at times. Pt found several times without clothing in her room, encouraged and assisted to put on a junaid. The pt had very little of her meals, she eat some of her fruit for lunch, but poured water all over the rest of her food. Attempted to encourage her to eat pudding or jello, pt refused. Pt was noted to be grimacing, when asked if she was in pain, she put her hand on the right side of her jaw and shook her head yes . Pt medicated with prn tylenol with positive effect, pt found shortly after to be sleeping. Pt had moderate tremor activity to bilateral arms/hands when attempting to hold a cup of water, MD aware. COWS scale completed, pt scored 11. Pt accepting of all medications with coaxing. Pt refusing to allow vital signs to be performed during shift.
[2021-05-06] MEDS: OLANZapine 7.5 MG TABLET PO (20:43)
[2021-05-06] MEDS: traZODone HCL 50 MG TABLET PO (20:45)
[2021-05-06 21:46] VITALS: BP 156/72; PULSE 105; RESP 18; TEMP 36.6; O2SAT 96
[2021-05-06 21:52] VITALS: PULSE 105
[2021-05-07 05:38] VITALS: BP 130/79; PULSE 109; RESP 18; TEMP 36.4; O2SAT 93
[2021-05-07 06:41] LABS: MANUAL DIFF FLAG NO
[2021-05-07 06:43] LABS: Basophils Absolute Auto 0.1 X10*3/uL (0.0-0.2); Basophils Percent Auto 1.5 % (0-2); Eosinophils Absolute Auto 0.3 X10*3/uL (0.0-0.4); Eosinophils Percent Auto 4.5 % (0-4); Hematocrit 42.4 % (37-47); Hemoglobin 13.4 g/dl (12.0-16.0); Imm Gran Abs Auto 0.03 X10*3/uL (0.00-0.03); Imm Gran Pct Auto 0.4 % (0.0-0.4); Lymphocytes Absolute Auto 2.7 X10*3/uL (1.2-4.9); Lymphocytes Percent Auto 37.2 % (20-40); Mean Corpuscular HGB Conc 31.6 g/dl (31.0-35.0); Mean Corpuscular Volume 82.3 fL (80-98); Mean Platelet Volume 9.4 fL (9.4-12.3); Monocytes Absolute Auto 0.8 X10*3/uL (0.1-1.2); Monocytes Percent Auto 11.6 % (2-11); Neutrophils Absolute Auto 3.2 X10*3/uL (2.0-8.3); Neutrophils Percent Auto 44.8 % (45-73); Platelet Count 305 X10*3/uL (160-400); Red Blood Count 5.15 X10*6/uL (4.20-5.50); Red Cell Distribution Width 13.6 % (11.0-16.0); White Blood Count 7.2 X10*3/uL (4.8-10.8)
[2021-05-07 07:14] LABS: Anion Gap 20 (12-20); Blood Urea Nitrogen 7 mg/dL (9-16); Calcium 8.8 mg/dL (8.4-10.2); Carbon Dioxide 16 mmol/L (22-29); Chloride 106 mmol/L (96-108); Creatinine Clr Calc Pharmacy 80.9; Estimated Glomerular Filt Rate > 60; Glucose Fasting 94 mg/dL (60-99); Potassium 3.2 mmol/L (3.3-5.1); Sodium 139 mmol/L (135-145)
--- NOTE | 2021-05-07 09:06 | P.PNPSI_ITS ---
Subjective Subjective Date of Service: 05/07/21 Reason For Visit: Psychosis Subjective Notes: Section 12B Interim History: the patient has been scoring 5 or 6 on the COWS, her pulse is always over 100. We started on Zyprexa 7.5 mg po qhs to target mood lability and psychosis. Today, she reported that felt very tired and anxious.. Medication Compliance: Yes Side effects from medications: No Attending Groups: No Mental Status Exam Mental Status Exam Patient Appearance: Disheveled and Unkempt Level of Consciousness: Drowsy and Disoriented Patient Behavior: Guarded Mood Description: Withdrawn Affect Description: Constricted Patient Cognition Impaired: No Ability to Follow Directions: Fair Speech Pattern: Pressured Hallucinations: None Delusions: Paranoid Ideation Thought Process: Distracted (tangential at times) Thought Content: positive for Thought Blocking Judgement: Poor Diagnostics Vital Signs (24Hr): Vital Signs - 24 hr 05/06/21 21:46 05/07/21 05:38 Temperature 97.8 F 97.5 F Pulse Rate 105 H 109 H Respiratory Rate 18 18 Blood Pressure 156/72 H 130/79 Pulse Oximetry 96 93 Body Mass Index 29.5 Labs Results: 05/07/21 06:31 05/07/21 06:31 Labs: Laboratory Results - last 48 hr 05/06/21 05/06/21 05/07/21 07:28 07:28 06:31 WBC 7.2 RBC 5.15 Hgb 13.4 Hct 42.4 MCV 82.3 MCH 26.0 L MCHC 31.6 RDW 13.6 Plt Count 305 MPV 9.4 Immature Gran % (Auto) 0.4 Neut % (Auto) 44.8 L Lymph % (Auto) 37.2 [place] % (Auto) 11.6 H Eos % (Auto) 4.5 H Baso % (Auto) 1.5 Lymph # (Auto) 2.7 [place] # (Auto) 0.8 Eos # (Auto) 0.3 Baso # (Auto) 0.1 Abs Immat Gran (auto) 0.03 Absolute Neuts (auto) 3.2 Absolute Nucleated RBC 0.000 Nucleated RBC % (auto) 0.0 Sodium Potassium Chloride Carbon Dioxide Anion Gap BUN Creatinine Estim Creat Clear Calc Estimated GFR Fasting Glucose Estimat Average Glucose 114 Hemoglobin A1c % 5.6 Calcium Triglycerides 84 Cholesterol 146 LDL Cholesterol, Calc 79 HDL Cholesterol 51 05/07/21 06:31 WBC RBC Hgb Hct MCV MCH MCHC RDW Plt Count MPV Immature Gran % (Auto) Neut % (Auto) Lymph % (Auto) [place] % (Auto) Eos % (Auto) Baso % (Auto) Lymph # (Auto) [place] # (Auto) Eos # (Auto) Baso # (Auto) Abs Immat Gran (auto) Absolute Neuts (auto) Absolute Nucleated RBC Nucleated RBC % (auto) Sodium 139 Potassium 3.2 L Chloride 106 Carbon Dioxide 16 L Anion Gap 20 BUN 7 L Creatinine 0.82 Estim Creat Clear Calc 80.9 Estimated GFR > 60 Fasting Glucose 94 Estimat Average Glucose Hemoglobin A1c % Calcium 8.8 D Triglycerides Cholesterol LDL Cholesterol, Calc HDL Cholesterol Imaging Radiology Impressions: ITS Impressions Head CT 05/04/21 15:25 IMPRESSION: No acute intracranial process seen. 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 Chest X-Ray 05/04/21 17:44 IMPRESSION: Unremarkable examination. Medications Medications Current Medications Generic Name Dose Route Start Last Admin Trade Name Freq PRN Reason Stop Dose Admin Acetaminophen 650 mg 05/05/21 19:04 05/06/21 20:47 Acetaminophen 325 Mg Tablet PO 650 mg Q6H PRN Administration Headache/Pain Mild Scale (1-3) Acetaminophen 650 mg 05/05/21 19:27 Acetaminophen 325 Mg Tablet PO Q6H PRN Headache/Pain Mild Scale (1-3) Al Hydroxide/Mg Hydroxide 30 ml 05/05/21 19:04 Magnesium Hydrox/Alum Hydrox 30 Ml Oral.Susp PO Q6H PRN Heartburn/Nausea Al Hydroxide/Mg Hydroxide 30 ml 05/05/21 19:27 Magnesium Hydrox/Alum Hydrox 30 Ml Oral.Susp PO Q6H PRN Heartburn/Nausea Buspirone HCl 15 mg 05/04/21 21:45 05/06/21 20:44 Buspirone Hcl 5 Mg Tablet PO 15 mg TID JARVIS Administration Clonazepam 0.5 mg 05/06/21 15:00 05/06/21 20:46 Clonazepam 0.5 Mg Tablet PO 0.5 mg TID JARVIS Administration Hydroxyzine HCl 100 mg 05/04/21 21:45 05/06/21 20:45 Hydroxyzine Hcl 50 Mg Tablet PO 100 mg BID JARVIS Administration Magnesium Hydroxide 30 ml 05/05/21 19:04 Milk Of Magnesia 30 Ml Oral.Susp PO DAILY PRN Constipation Magnesium Hydroxide 30 ml 05/05/21 19:27 Milk Of Magnesia 30 Ml Oral.Susp PO DAILY PRN Constipation Olanzapine 7.5 mg 05/06/21 21:00 05/06/21 20:43 Olanzapine 7.5 Mg Tablet PO 7.5 mg BEDTIME JARVIS Administration Topiramate 200 mg 05/05/21 09:00 05/06/21 08:08 Topiramate 100 Mg Tablet PO 200 mg DAILY JARVIS Administration Trazodone HCl 50 mg 05/05/21 19:04 05/06/21 20:45 Trazodone Hcl 50 Mg Tablet PO 50 mg BEDTIME PRN Administration Insomnia Allergies Allergies Allergy/AdvReac Type Severity Reaction Status Date / Time No Known Allergies Allergy Verified 05/04/21 15:15 Assessment & Plan Assessment & Plan (1) Acute psychosis: Status: Acute Code(s): F23 - Brief psychotic disorder Assessment and Plan: Middle age female with acute psychosis, grossly disorganized on ad mission, probably on delirium due to drug withdrawal, unable to take care of herself. Plan: COWS Keep same treatment with Zyprexa and Topamax. Add Clonidine 0.1 mg po tid. (2) Mood disorder: Status: Acute Code(s): F39 - Unspecified mood [affective] disorder (3) Benzodiazepine abuse: Status: Acute Code(s): F13.10 - Sedative, hypnotic or anxiolytic abuse, uncomplicated Greater than 50% of the session was spent on counseling and/or coordination of care Reason for contiued inpatient stay Substantial Risk for: harm to self, harm to others, inability to function, rapid decompensation and med/psych decompensation
[2021-05-07 10:39] VITALS: BP 138/69; PULSE 104; TEMP 36.6; O2SAT 98
[2021-05-07] MEDS: busPIRone HCl 5 MG TABLET 15 MG PO ×3 (10:46→21:43)
[2021-05-07] MEDS: hydrOXYzine HCL 50 MG TABLET 100 MG PO ×2 (10:46→21:43)
[2021-05-07] MEDS: Topiramate 100 MG TABLET 200 MG PO (10:47)
[2021-05-07] MEDS: clonazePAM 0.5 MG TABLET PO ×3 (10:48→21:50)
[2021-05-07] MEDS: cloNIDine HCL 0.1 MG TABLET PO ×2 (15:51→21:43)
[2021-05-07 18:00] VITALS: BP 145/67; PULSE 102; RESP 18; TEMP 35.8; O2SAT 96
[2021-05-07 21:43] VITALS: BP 140/66; PULSE 108
[2021-05-07] MEDS: OLANZapine 7.5 MG TABLET PO (21:43)
[2021-05-07] MEDS: Amoxicillin/Potassium Clav 500 MG TABLET PO (21:43)
[2021-05-07 22:00] VITALS: BP 140/66; PULSE 108; RESP 16; TEMP 36.3; O2SAT 95
[2021-05-08] VITALS (9 sets, daily range): BP systolic 117–136; BP diastolic 60–76; PULSE 69–107; RESP 16; TEMP 35.7–37.2; O2SAT 94–97; BMI 26.9
[2021-05-08] MEDS: Amoxicillin/Potassium Clav 500 MG TABLET PO ×3 (06:04→21:05)
[2021-05-08] MEDS: Topiramate 100 MG TABLET 200 MG PO (08:56)
[2021-05-08] MEDS: hydrOXYzine HCL 50 MG TABLET 100 MG PO ×2 (08:57→21:06)
[2021-05-08] MEDS: cloNIDine HCL 0.1 MG TABLET PO ×3 (08:58→21:05)
[2021-05-08] MEDS: clonazePAM 0.5 MG TABLET PO ×3 (08:58→21:05)
[2021-05-08] MEDS: busPIRone HCl 5 MG TABLET 15 MG PO ×3 (10:06→21:06)
[2021-05-08 10:08] LABS: Urine Cytology See Pathology rpt
[2021-05-08 10:36] LABS: Amphetamine Screen Urine Not Detected (Not Detect); Barbiturates, Urine Not Detected (Not Detect); Benzodiazepines Screen Urine Not Detected (Not Detect); Cannabinoid Screen Urine POSITIVE (Not Detect); Cocaine Screen Urine Not Detected (Not Detect); Opiate Screen Urine Not Detected (Not Detect); Phencyclidine Screen Urine Not Detected (Not Detect)
[2021-05-08 10:41] LABS: Appearance Urine HAZY; Color Urine YELLOW; Glucose Urine UA NEG (NEG); Leukocyte Esterase Urine NEG (NEG); Nitrite Urine NEG (NEG); Specific Gravity - Urine >= 1.030 (1.005-1.025); Urine Blood NEG (NEG); Urine Ketones >=80 MG/DL (NEG); Urine Protein TRACE MG/DL (NEG-TRACE)
[2021-05-08] MEDS: Ibuprofen 800 MG TABLET PO (14:00)
--- NOTE | 2021-05-08 14:52 | P.PNPSI_ITS ---
Subjective Subjective Date of Service: 05/08/21 Reason For Visit: Psychosis Subjective Notes: Conditional Voluntary Interim History: The patient is more alert and aware, she complained of severe tooth ache. She feels so tired that she doesn't move from her bed. Her labs came back, positive only to MJ. Mental Status Exam Mental Status Exam Patient Appearance: Appropriate (on hospital gowns) Patient Orientation: Person and Place Level of Consciousness: Awake and Alert Patient Behavior: Appropriate and Cooperative Mood Description: Withdrawn Affect Description: Constricted Patient Cognition Impaired: No Speech Pattern: Clear Memory Description: Immediate Impaired and Recent Impaired Hallucinations: None Delusions: Not Present Thought Process: Distracted Thought Content: positive for Circumstantial and positive for Poverty of Content Depressive Symptoms: Increased Anxiety Judgement: Fair Diagnostics Vital Signs (24Hr): Vital Signs - 24 hr 05/07/21 18:00 05/07/21 21:43 05/07/21 22:00 Temperature 96.5 F L 97.3 F Pulse Rate 102 H 108 H 108 H Respiratory Rate 18 16 Blood Pressure 145/67 H 140/66 H 140/66 H Pulse Oximetry 96 95 05/08/21 06:00 05/08/21 08:58 05/08/21 10:00 Temperature 97.3 F 96.3 F L Pulse Rate 107 H 105 H 105 H Respiratory Rate 16 16 Blood Pressure 136/70 126/71 126/71 Pulse Oximetry 96 95 Body Mass Index 29.5 Labs Results: 05/07/21 06:31 05/07/21 06:31 Labs: Laboratory Results - last 48 hr 05/07/21 05/07/21 05/08/21 06:31 06:31 09:45 WBC 7.2 RBC 5.15 Hgb 13.4 Hct 42.4 MCV 82.3 MCH 26.0 L MCHC 31.6 RDW 13.6 Plt Count 305 MPV 9.4 Immature Gran % (Auto) 0.4 Neut % (Auto) 44.8 L Lymph % (Auto) 37.2 [place] % (Auto) 11.6 H Eos % (Auto) 4.5 H Baso % (Auto) 1.5 Lymph # (Auto) 2.7 [place] # (Auto) 0.8 Eos # (Auto) 0.3 Baso # (Auto) 0.1 Abs Immat Gran (auto) 0.03 Absolute Neuts (auto) 3.2 Absolute Nucleated RBC 0.000 Nucleated RBC % (auto) 0.0 Sodium 139 Potassium 3.2 L Chloride 106 Carbon Dioxide 16 L Anion Gap 20 BUN 7 L Creatinine 0.82 Estim Creat Clear Calc 80.9 Estimated GFR > 60 Fasting Glucose 94 Calcium 8.8 D Urine Color YELLOW Urine Appearance HAZY Urine pH 6.0 Ur Specific [place] >= 1.030 H Urine Protein TRACE Urine Glucose (UA) NEG Urine Ketones >=80 Urine Blood NEG Urine Nitrite NEG Ur Leukocyte Esterase NEG Urine Opiates Screen Ur Barbiturates Screen Ur Phencyclidine Scrn Ur Amphetamines Screen U Benzodiazepines Scrn Urine Cocaine Screen U Marijuana (THC) Screen 05/08/21 09:45 WBC RBC Hgb Hct MCV MCH MCHC RDW Plt Count MPV Immature Gran % (Auto) Neut % (Auto) Lymph % (Auto) [place] % (Auto) Eos % (Auto) Baso % (Auto) Lymph # (Auto) [place] # (Auto) Eos # (Auto) Baso # (Auto) Abs Immat Gran (auto) Absolute Neuts (auto) Absolute Nucleated RBC Nucleated RBC % (auto) Sodium Potassium Chloride Carbon Dioxide Anion Gap BUN Creatinine Estim Creat Clear Calc Estimated GFR Fasting Glucose Calcium Urine Color Urine Appearance Urine pH Ur Specific [place] Urine Protein Urine Glucose (UA) Urine Ketones Urine Blood Urine Nitrite Ur Leukocyte Esterase Urine Opiates Screen Not Detected Ur Barbiturates Screen Not Detected Ur Phencyclidine Scrn Not Detected Ur Amphetamines Screen Not Detected U Benzodiazepines Scrn Not Detected Urine Cocaine Screen Not Detected U Marijuana (THC) Screen POSITIVE H Imaging Radiology Impressions: ITS Impressions Head CT 05/04/21 15:25 IMPRESSION: No acute intracranial process seen. 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 Chest X-Ray 05/04/21 17:44 IMPRESSION: Unremarkable examination. Medications Medications Current Medications Generic Name Dose Route Start Last Admin Trade Name Freq PRN Reason Stop Dose Admin Acetaminophen 650 mg 05/05/21 19:04 05/06/21 20:47 Acetaminophen 325 Mg Tablet PO 650 mg Q6H PRN Administration Headache/Pain Mild Scale (1-3) Acetaminophen 650 mg 05/05/21 19:27 Acetaminophen 325 Mg Tablet PO Q6H PRN Headache/Pain Mild Scale (1-3) Al Hydroxide/Mg Hydroxide 30 ml 05/05/21 19:04 Magnesium Hydrox/Alum Hydrox 30 Ml Oral.Susp PO Q6H PRN Heartburn/Nausea Al Hydroxide/Mg Hydroxide 30 ml 05/05/21 19:27 Magnesium Hydrox/Alum Hydrox 30 Ml Oral.Susp PO Q6H PRN Heartburn/Nausea Amoxicillin/Clavulanate Potassium 500 mg 05/07/21 21:00 05/08/21 13:37 Amoxicillin/Potassium Clav 500 Mg Tablet PO 05/14/21 20:59 500 mg Q8H JARVIS Administration Buspirone HCl 15 mg 05/04/21 21:45 05/08/21 10:06 Buspirone Hcl 5 Mg Tablet PO 15 mg TID JARVIS Administration Clonazepam 0.5 mg 05/06/21 15:00 05/08/21 08:58 Clonazepam 0.5 Mg Tablet PO 0.5 mg TID JARVIS Administration Clonidine HCl 0.1 mg 05/07/21 15:00 05/08/21 08:58 Clonidine Hcl 0.1 Mg Tablet PO 0.1 mg TID JARVIS Administration Protocol Hydroxyzine HCl 100 mg 05/04/21 21:45 05/08/21 08:57 Hydroxyzine Hcl 50 Mg Tablet PO 100 mg BID JARVIS Administration Magnesium Hydroxide 30 ml 05/05/21 19:04 Milk Of Magnesia 30 Ml Oral.Susp PO DAILY PRN Constipation Magnesium Hydroxide 30 ml 05/05/21 19:27 Milk Of Magnesia 30 Ml Oral.Susp PO DAILY PRN Constipation Olanzapine 7.5 mg 05/06/21 21:00 05/07/21 21:43 Olanzapine 7.5 Mg Tablet PO 7.5 mg BEDTIME JARVIS Administration Topiramate 200 mg 05/05/21 09:00 05/08/21 08:56 Topiramate 100 Mg Tablet PO 200 mg DAILY JARVIS Administration Trazodone HCl 50 mg 05/05/21 19:04 05/06/21 20:45 Trazodone Hcl 50 Mg Tablet PO 50 mg BEDTIME PRN Administration Insomnia Allergies Allergies Allergy/AdvReac Type Severity Reaction Status Date / Time No Known Allergies Allergy Verified 05/04/21 15:15 Assessment & Plan Assessment & Plan (1) Acute psychosis: Status: Acute Code(s): F23 - Brief psychotic disorder Assessment and Plan: Middle age female with acute psychosis, grossly disorganized on admission, probably on delirium due to drug withdrawal, unable to take care of herself. Plan: COWS, now scored 4 Keep same treatment with Zyprexa and Topamax. Add Clonidine 0.1 mg po tid. Continue Augmentin for abscess on the mouth Add Motrin 800 mg po tid PRN (2) Mood disorder: Status: Acute Code(s): F39 - Unspecified mood [affective] disorder (3) Benzodiazepine abuse: Status: Acute Code(s): F13.10 - Sedative, hypnotic or anxiolytic abuse, uncomplicated Greater than 50% of the session was spent on counseling and/or coordination of care Reason for contiued inpatient stay Substantial Risk for: inability to function, rapid decompensation and med/psych decompensation
--- NOTE | 2021-05-08 17:14 | PC.NURSE ---
Pt labs ordered urine was given and sent to lab with pending results. Toxicology came back only positive for THC. Weight 182 pt stated she does not want trazodone and she stated get a bad reactions from that medication. Pt also complaint of back tooth pain MD was called and gave an order of Motrin 800mg 1x . Ate 100 % of all meals during shift, pt refused shower and didn't want to come out to dayroom
[2021-05-08] MEDS: OLANZapine 7.5 MG TABLET PO (21:06)
[2021-05-09] MEDS: clonazePAM 0.5 MG TABLET PO ×3 (08:56→20:17)
[2021-05-09] MEDS: Amoxicillin/Potassium Clav 500 MG TABLET PO ×3 (08:56→20:16)
[2021-05-09] MEDS: Topiramate 100 MG TABLET 200 MG PO (08:56)
[2021-05-09] MEDS: busPIRone HCl 5 MG TABLET 15 MG PO ×3 (08:57→20:17)
[2021-05-09] MEDS: hydrOXYzine HCL 50 MG TABLET 100 MG PO ×2 (08:59→20:16)
[2021-05-09 09:20] VITALS: BP 134/64; PULSE 96; TEMP 37; O2SAT 95
[2021-05-09 09:38] VITALS: BP 134/64; PULSE 96
[2021-05-09] MEDS: cloNIDine HCL 0.1 MG TABLET PO ×3 (09:38→20:17)
[2021-05-09] MEDS: Acetaminophen 325 MG TABLET 650 MG PO (10:19)
--- NOTE | 2021-05-09 13:24 | HO.PSYCHPN ---
Subjective Subjective Date of Service: 05/09/21 Reason For Visit: Psychosis Subjective Notes: Conditional Voluntary Interim History: The patient reports feeling very tired, she is still most of the time sleeping in her room. She is more alert and oriented but still with some confusion mostly at night. Her COWS scored 1 last night so I decided to stop it. On the interview, she complained of toothache, I started ATB and PRN Motrin but I will start standing NSAIDs Medication Compliance: Yes Side effects from medications: No Attending Groups: No Review of Systems Acute medical concerns: No Medical Review of Systems: unchanged Mental Status Exam Mental Status Exam Patient Appearance: Well Grooomed Patient Orientation: Person, Place and Situation Level of Consciousness: Awake Patient Behavior: Appropriate Mood Description: Withdrawn Affect Description: Constricted Patient Cognition Impaired: No Ability to Follow Directions: Good Speech Pattern: Clear Hallucinations: None Delusions: Not Present Thought Process: Slowed Thinking Thought Content: positive for Poverty of Content and positive for Slowed Thinking Judgement: Fair Diagnostics Vital Signs (24Hr): Vital Signs - 24 hr 05/08/21 15:59 05/08/21 17:04 05/08/21 21:05 Temperature 97.2 F Pulse Rate 107 H 99 Respiratory Rate 16 Blood Pressure 130/72 130/72 134/76 Pulse Oximetry 95 05/08/21 21:11 05/08/21 21:22 05/09/21 09:20 Temperature 96.5 F L 99.0 F 98.6 F Pulse Rate 97 69 96 Respiratory Rate Blood Pressure 134/76 117/60 134/64 Pulse Oximetry 97 94 95 05/09/21 09:38 Temperature Pulse Rate 96 Respiratory Rate Blood Pressure 134/64 Pulse Oximetry Body Mass Index 26.9 Labs Results: 05/07/21 06:31 05/07/21 06:31 Labs: Laboratory Results - last 48 hr 05/08/21 05/08/21 09:45 09:45 Urine Color YELLOW Urine Appearance HAZY Urine pH 6.0 Ur Specific [place] >= 1.030 H Urine Protein TRACE Urine Glucose (UA) NEG Urine Ketones >=80 Urine Blood NEG Urine Nitrite NEG Ur Leukocyte Esterase NEG Urine Opiates Screen Not Detected Ur Barbiturates Screen Not Detected Ur Phencyclidine Scrn Not Detected Ur Amphetamines Screen Not Detected U Benzodiazepines Scrn Not Detected Urine Cocaine Screen Not Detected U Marijuana (THC) Screen POSITIVE H Imaging Radiology Impressions: ITS Impressions Head CT 05/04/21 15:25 IMPRESSION: No acute intracranial process seen. 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 Chest X-Ray 05/04/21 17:44 IMPRESSION: Unremarkable examination. Medications Medications Current Medications Generic Name Dose Route Start Last Admin Trade Name Freq PRN Reason Stop Dose Admin Acetaminophen 650 mg 05/05/21 19:04 05/09/21 10:19 Acetaminophen 325 Mg Tablet PO 650 mg Q6H PRN Administration Headache/Pain Mild Scale (1-3) Al Hydroxide/Mg Hydroxide 30 ml 05/05/21 19:04 Magnesium Hydrox/Alum Hydrox 30 Ml Oral.Susp PO Q6H PRN Heartburn/Nausea Amoxicillin/Clavulanate Potassium 500 mg 05/07/21 21:00 05/09/21 08:56 Amoxicillin/Potassium Clav 500 Mg Tablet PO 05/14/21 20:59 500 mg Q8H JARVIS Administration Buspirone HCl 15 mg 05/04/21 21:45 05/09/21 08:57 Buspirone Hcl 5 Mg Tablet PO 15 mg TID JARVIS Administration Clonazepam 0.5 mg 05/06/21 15:00 05/09/21 08:56 Clonazepam 0.5 Mg Tablet PO 0.5 mg TID JARVIS Administration Clonidine HCl 0.1 mg 05/07/21 15:00 05/09/21 09:38 Clonidine Hcl 0.1 Mg Tablet PO 0.1 mg TID JARVIS Administration Protocol Hydroxyzine HCl 100 mg 05/04/21 21:45 05/09/21 08:59 Hydroxyzine Hcl 50 Mg Tablet PO 100 mg BID JARVIS Administration Ibuprofen 800 mg 05/08/21 16:22 Ibuprofen 800 Mg Tablet PO Q8H PRN Pain, Moderate (Pain Scale 4-6 Magnesium Hydroxide 30 ml 05/05/21 19:04 Milk Of Magnesia 30 Ml Oral.Susp PO DAILY PRN Constipation Olanzapine 7.5 mg 05/06/21 21:00 05/08/21 21:06 Olanzapine 7.5 Mg Tablet PO 7.5 mg BEDTIME JARVIS Administration Topiramate 200 mg 05/05/21 09:00 05/09/21 08:56 Topiramate 100 Mg Tablet PO 200 mg DAILY JARVIS Administration Trazodone HCl 50 mg 05/05/21 19:04 05/06/21 20:45 Trazodone Hcl 50 Mg Tablet PO 50 mg BEDTIME PRN Administration Insomnia Allergies Allergies Allergy/AdvReac Type Severity Reaction Status Date / Time No Known Allergies Allergy Verified 05/04/21 15:15 Assessment & Plan Assessment & Plan (1) Acute psychosis: Status: Acute Code(s): F23 - Brief psychotic disorder Assessment and Plan: Middle age female with acute psychosis, grossly disorganized on admission, probably on delirium due to drug withdrawal, unable to take care of herself. Plan: COWS, now scored 1 Keep same treatment with Zyprexa and Topamax. Keep Clonidine 0.1 mg po tid. Continue Augmentin for abscess on the mouth Add Motrin 800 mg po tid PRN (2) Benzodiazepine abuse: Status: Acute Code(s): F13.10 - Sedative, hypnotic or anxiolytic abuse, uncomplicated (3) Bipolar disorder: Status: Acute Code(s): F31.9 - Bipolar disorder, unspecified Greater than 50% of the session was spent on counseling and/or coordination of care Reason for contiued inpatient stay Substantial Risk for: inability to function, rapid decompensation and med/psych decompensation
[2021-05-09 14:21] VITALS: BP 130/60; PULSE 96
[2021-05-09 18:22] VITALS: BP 122/58; PULSE 95; TEMP 36.1; O2SAT 97
[2021-05-09] MEDS: OLANZapine 7.5 MG TABLET PO (20:17)
[2021-05-09 20:18] VITALS: BP 128/62; PULSE 95; RESP 16; TEMP 36.2; O2SAT 95
[2021-05-09] MEDS: Ibuprofen 800 MG TABLET PO (20:23)
[2021-05-09 20:45] VITALS: BP 134/88; PULSE 100; RESP 20
[2021-05-10] MEDS: Amoxicillin/Potassium Clav 500 MG TABLET PO ×3 (05:42→20:53)
[2021-05-10 05:52] VITALS: BP 126/60; PULSE 87; RESP 16; TEMP 36.1; O2SAT 97
[2021-05-10] MEDS: clonazePAM 0.5 MG TABLET PO ×3 (08:35→20:53)
[2021-05-10] MEDS: busPIRone HCl 5 MG TABLET 15 MG PO ×3 (08:35→14:53)
[2021-05-10 08:36] VITALS: BP 126/60; PULSE 87
[2021-05-10] MEDS: cloNIDine HCL 0.1 MG TABLET PO ×3 (08:36→20:53)
[2021-05-10] MEDS: Topiramate 100 MG TABLET 200 MG PO (08:37)
[2021-05-10] MEDS: hydrOXYzine HCL 50 MG TABLET 100 MG PO ×2 (08:37→20:53)
[2021-05-10 10:00] VITALS: BP 126/60; PULSE 87; RESP 16; TEMP 36.1; O2SAT 97
--- NOTE | 2021-05-10 11:50 | HO.PSYCHPN ---
Subjective Subjective Date of Service: 05/11/21 Reason For Visit: Psychosis Interim History: pt slowly more oriented to situation and place. She reports she does not remember being naked in her room or being as disorganized as she was when she was brought in to the hospital. He reports her mood is anxious, some depression, feeling hopeless at times. He reports having nightmares at night and this at times being distressful. She denies SI/HI. She denies VH/AH. She was confused about month which she thought it was May but otherwise fully oriented. No behavioral concerns. Review of Systems Review of Systems Constitutional: No Fever, No Chills Cardiovascular: No Chest Pain, No SOB Respiratory: No Cough Gastrointestinal: No Nausea, No Vomiting, No Diarrhea, No Abdominal pain Musculoskeletal: No joint pain, No Myalgias Skin: No Skin Lesions, No rash Neuro: No Weakness, No Numbness, No Headache Psych: No Anxiety/Panic, No Depression, No SI/HI, +AH/VH Yes all other systems are reviewed and are negative and Unobtainable due to mental status Mental Status Exam Mental Status Exam Narrative: Appearance: casually groomed, fair hygiene, in NAD Behavior: calm, cooperative Psychomotor: no agitation or retardation noted Speech: clear, normal rate/rhythm/volume, spontaneous TP: linear TC: no signs of psychosis, feeling depressed Mood: depressed Affect:blunted and anxious SI:denies HI:denies AH/VH:none Delusions:none Insight/judgment:improving x 2 Memory/cog: alert, oriented to year, place, situation not month. Diagnostics Vital Signs (24Hr): Vital Signs - 24 hr 05/10/21 14:53 05/10/21 18:00 05/10/21 20:53 Temperature 98.1 F Pulse Rate 87 90 100 Respiratory Rate Blood Pressure 126/60 121/55 L 134/88 Pulse Oximetry 94 05/11/21 05:38 Temperature 97.5 F Pulse Rate 65 Respiratory Rate 16 Blood Pressure 98/53 L Pulse Oximetry 96 Body Mass Index 26.9 Labs Results: 05/07/21 06:31 05/07/21 06:31 Imaging Radiology Impressions: ITS Impressions Head CT 05/04/21 15:25 IMPRESSION: No acute intracranial process seen. 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 Chest X-Ray 05/04/21 17:44 IMPRESSION: Unremarkable examination. Medications Medications Current Medications Generic Name Dose Route Start Last Admin Trade Name Freq PRN Reason Stop Dose Admin Acetaminophen 650 mg 05/05/21 19:04 05/09/21 10:19 Acetaminophen 325 Mg Tablet PO 650 mg Q6H PRN Administration Headache/Pain Mild Scale (1-3) Al Hydroxide/Mg Hydroxide 30 ml 05/05/21 19:04 05/11/21 10:09 Magnesium Hydrox/Alum Hydrox 30 Ml Oral.Susp PO 30 ml Q6H PRN Administration Heartburn/Nausea Amoxicillin/Clavulanate Potassium 500 mg 05/07/21 21:00 05/11/21 05:23 Amoxicillin/Potassium Clav 500 Mg Tablet PO 05/14/21 20:59 500 mg Q8H JARVIS Administration Buspirone HCl 15 mg 05/04/21 21:45 05/11/21 09:01 Buspirone Hcl 5 Mg Tablet PO 15 mg TID JARVIS Administration Clonazepam 0.5 mg 05/06/21 15:00 05/11/21 09:01 Clonazepam 0.5 Mg Tablet PO 0.5 mg TID JARVIS Administration Clonidine HCl 0.1 mg 05/07/21 15:00 05/11/21 09:01 Clonidine Hcl 0.1 Mg Tablet PO 0.1 mg TID JARVIS Administration Protocol Hydroxyzine HCl 100 mg 05/04/21 21:45 05/11/21 09:01 Hydroxyzine Hcl 50 Mg Tablet PO 100 mg BID JARVIS Administration Ibuprofen 800 mg 05/08/21 16:22 05/10/21 20:52 Ibuprofen 800 Mg Tablet PO 800 mg Q8H PRN Administration Pain, Moderate (Pain Scale 4-6 Magnesium Hydroxide 30 ml 05/05/21 19:04 Milk Of Magnesia 30 Ml Oral.Susp PO DAILY PRN Constipation Olanzapine 7.5 mg 05/06/21 21:00 05/10/21 21:00 Olanzapine 7.5 Mg Tablet PO 7.5 mg BEDTIME JARVIS Administration Topiramate 200 mg 05/05/21 09:00 05/11/21 09:01 Topiramate 100 Mg Tablet PO 200 mg DAILY JARVIS Administration Trazodone HCl 50 mg 05/05/21 19:04 05/06/21 20:45 Trazodone Hcl 50 Mg Tablet PO 50 mg BEDTIME PRN Administration Insomnia Allergies Allergies Allergy/AdvReac Type Severity Reaction Status Date / Time No Known Allergies Allergy Verified 05/04/21 15:15 Assessment & Plan Assessment & Plan (1) Acute psychosis: Status: Acute Code(s): F23 - Brief psychotic disorder Assessment and Plan: PLAN: continue per treatment team Middle age female with acute psychosis, grossly disorganized on admission, probably on delirium due to drug withdrawal, unable to take care of herself. Plan: COWS, now scored 1 Keep same treatment with Zyprexa and Topamax. Keep Clonidine 0.1 mg po tid. Continue Augmentin for abscess on the mouth Add Motrin 800 mg po tid PRN (2) Benzodiazepine abuse: Status: Acute Code(s): F13.10 - Sedative, hypnotic or anxiolytic abuse, uncomplicated (3) Bipolar disorder: Status: Acute Code(s): F31.9 - Bipolar disorder, unspecified Greater than 50% of the session was spent on counseling and/or coordination of care Reason for contiued inpatient stay Substantial Risk for: inability to function
[2021-05-10 14:53] VITALS: BP 126/60; PULSE 87
[2021-05-10 18:00] VITALS: BP 121/55; PULSE 90; TEMP 36.7; O2SAT 94
[2021-05-10] MEDS: Ibuprofen 800 MG TABLET PO (20:52)
[2021-05-10 20:53] VITALS: BP 134/88; PULSE 100
[2021-05-10] MEDS: OLANZapine 7.5 MG TABLET PO (21:00)
[2021-05-11] MEDS: Magnesium Hydrox/Alum Hydrox 30 ML ORAL.SUSP PO ×2 (00:25→10:09)
[2021-05-11] MEDS: Amoxicillin/Potassium Clav 500 MG TABLET PO ×3 (05:23→21:02)
[2021-05-11 05:38] VITALS: BP 98/53; PULSE 65; RESP 16; TEMP 36.4; O2SAT 96
[2021-05-11] MEDS: Topiramate 100 MG TABLET 200 MG PO (09:01)
[2021-05-11] MEDS: cloNIDine HCL 0.1 MG TABLET PO ×3 (09:01→21:02)
[2021-05-11] MEDS: hydrOXYzine HCL 50 MG TABLET 100 MG PO ×2 (09:01→21:03)
[2021-05-11] MEDS: clonazePAM 0.5 MG TABLET PO (09:01)
[2021-05-11] MEDS: busPIRone HCl 5 MG TABLET 15 MG PO ×3 (09:01→21:02)
[2021-05-11] MEDS: Omeprazole 20 MG CAPSULE.DR PO (15:24)
[2021-05-11 18:00] VITALS: BP 114/63; PULSE 89; TEMP 36.6; O2SAT 92
[2021-05-11] MEDS: Acetaminophen 325 MG TABLET 650 MG PO (21:02)
[2021-05-11] MEDS: Calcium Carbonate 750 MG TAB.CHEW PO (21:02)
[2021-05-11] MEDS: OLANZapine 7.5 MG TABLET PO (21:04)
[2021-05-11 21:53] VITALS: BP 114/60; PULSE 89; TEMP 36.6; O2SAT 92
[2021-05-12] MEDS: Omeprazole 20 MG CAPSULE.DR PO (06:24)
[2021-05-12] MEDS: Amoxicillin/Potassium Clav 500 MG TABLET PO ×3 (06:24→20:28)
[2021-05-12] MEDS: Topiramate 100 MG TABLET 200 MG PO (09:24)
[2021-05-12] MEDS: busPIRone HCl 5 MG TABLET 15 MG PO ×3 (09:25→20:32)
[2021-05-12] MEDS: hydrOXYzine HCL 50 MG TABLET 100 MG PO ×2 (09:25→20:30)
[2021-05-12] MEDS: Ibuprofen 800 MG TABLET PO (09:25)
[2021-05-12] MEDS: Calcium Carbonate 750 MG TAB.CHEW PO (09:25)
[2021-05-12 10:03] VITALS: BP 107/51; PULSE 76
--- NOTE | 2021-05-12 11:16 | P.PNPSI_ITS ---
Subjective Subjective Date of Service: 05/12/21 Reason For Visit: Psychosis Subjective Notes: Conditional Voluntary Interim History: The patient has remained on her bed all the weekend. She reported that she is feeling tired and a little dysphoric. More oriented but still sedated. We discussed opitons and she agreed to lower Zyprexa to 5 mg and D/C Clonidine. Mental Status Exam Mental Status Exam Patient Appearance: Well Grooomed (on hospital gowns) Patient Orientation: Person and Place Level of Consciousness: Awake Patient Behavior: Appropriate Mood Description: Withdrawn Affect Description: Constricted Patient Cognition Impaired: No Ability to Follow Directions: Good Speech Pattern: Clear Memory Description: Intact Hallucinations: None Delusions: Not Present Thought Process: Distracted Thought Content: positive for Circumstantial and positive for Poverty of Content Depressive Symptoms: Increased Anxiety Judgement: Fair Diagnostics Vital Signs (24Hr): Vital Signs - 24 hr 05/11/21 18:00 05/11/21 21:53 05/12/21 10:03 Temperature 97.9 F 97.9 F Pulse Rate 89 89 76 Blood Pressure 114/63 114/60 107/51 L Pulse Oximetry 92 92 Body Mass Index 26.9 Labs Results: 05/07/21 06:31 05/07/21 06:31 Imaging Radiology Impressions: ITS Impressions Head CT 05/04/21 15:25 IMPRESSION: No acute intracranial process seen. 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 Chest X-Ray 05/04/21 17:44 IMPRESSION: Unremarkable examination. Medications Medications Current Medications Generic Name Dose Route Start Last Admin Trade Name Freq PRN Reason Stop Dose Admin Acetaminophen 650 mg 05/05/21 19:04 05/11/21 21:02 Acetaminophen 325 Mg Tablet PO 650 mg Q6H PRN Administration Headache/Pain Mild Scale (1-3) Al Hydroxide/Mg Hydroxide 30 ml 05/05/21 19:04 05/11/21 10:09 Magnesium Hydrox/Alum Hydrox 30 Ml Oral.Susp PO 30 ml Q6H PRN Administration Heartburn/Nausea Amoxicillin/Clavulanate Potassium 500 mg 05/07/21 21:00 05/12/21 06:24 Amoxicillin/Potassium Clav 500 Mg Tablet PO 05/14/21 20:59 500 mg Q8H JARVIS Administration Buspirone HCl 15 mg 05/04/21 21:45 05/12/21 09:25 Buspirone Hcl 5 Mg Tablet PO 15 mg TID JARVIS Administration Calcium Carbonate 750 mg 05/11/21 13:35 05/12/21 09:25 Calcium Carbonate 750 Mg Tab.Chew PO 750 mg Q6H PRN Administration heart burn Clonazepam 0.5 mg 05/12/21 11:15 Clonazepam 0.5 Mg Tablet PO TID PRN Anxiety Clonidine HCl 0.1 mg 05/07/21 15:00 05/12/21 10:03 Clonidine Hcl 0.1 Mg Tablet PO Not Given TID [facility] Protocol Hydroxyzine HCl 100 mg 05/04/21 21:45 05/12/21 09:25 Hydroxyzine Hcl 50 Mg Tablet PO 100 mg BID JARVIS Administration Ibuprofen 800 mg 05/08/21 16:22 05/12/21 09:25 Ibuprofen 800 Mg Tablet PO 800 mg Q8H PRN Administration Pain, Moderate (Pain Scale 4-6 Magnesium Hydroxide 30 ml 05/05/21 19:04 Milk Of Magnesia 30 Ml Oral.Susp PO DAILY PRN Constipation Olanzapine 7.5 mg 05/06/21 21:00 05/11/21 21:04 Olanzapine 7.5 Mg Tablet PO 7.5 mg BEDTIME JARVIS Administration Omeprazole 20 mg 05/11/21 13:35 05/12/21 06:24 Omeprazole 20 Mg Capsule. PO 20 mg DAILY@0630 JARVIS Administration Topiramate 200 mg 05/05/21 09:00 05/12/21 09:24 Topiramate 100 Mg Tablet PO 200 mg DAILY JARVIS Administration Trazodone HCl 50 mg 05/05/21 19:04 05/06/21 20:45 Trazodone Hcl 50 Mg Tablet PO 50 mg BEDTIME PRN Administration Insomnia Allergies Allergies Allergy/AdvReac Type Severity Reaction Status Date / Time No Known Allergies Allergy Verified 05/04/21 15:15 Assessment & Plan Assessment & Plan (1) Acute psychosis: Status: Acute Code(s): F23 - Brief psychotic disorder Assessment and Plan: PLAN: continue per treatment team Middle age female with acute psychosis, grossly disorganized on admission, probably on delirium due to drug withdrawal, unable to take care of herself. Plan: Lower Zyprexa to 5 mg po qhs and keep Topamax D/C Clonidine 0.1 mg po tid. Continue Augmentin for abscess on the mouth Add Motrin 800 mg po tid PRN (2) Benzodiazepine abuse: Status: Acute Code(s): F13.10 - Sedative, hypnotic or anxiolytic abuse, uncomplicated (3) Bipolar disorder: Status: Acute Code(s): F31.9 - Bipolar disorder, unspecified Greater than 50% of the session was spent on counseling and/or coordination of care Reason for contiued inpatient stay Substantial Risk for: inability to function, rapid decompensation and med/psych decompensation
[2021-05-12] MEDS: clonazePAM 0.5 MG TABLET PO ×3 (12:46→23:16)
[2021-05-12 19:28] VITALS: BP 130/63; PULSE 87; RESP 18; O2SAT 96
[2021-05-12] MEDS: OLANZapine 5 MG TABLET PO (20:29)
[2021-05-12 21:31] VITALS: BP 108/54; PULSE 80; RESP 16; TEMP 36.1; O2SAT 97
[2021-05-13 06:00] VITALS: BP 115/60; PULSE 94; RESP 16; TEMP 36.1; O2SAT 94
[2021-05-13] MEDS: Omeprazole 20 MG CAPSULE.DR PO (06:17)
[2021-05-13] MEDS: Amoxicillin/Potassium Clav 500 MG TABLET PO ×3 (06:17→19:51)
[2021-05-13] MEDS: clonazePAM 0.5 MG TABLET PO ×3 (06:24→19:51)
[2021-05-13 06:45] VITALS: BP 115/60; PULSE 71; RESP 16; TEMP 36.1; O2SAT 94
[2021-05-13] MEDS: Calcium Carbonate 750 MG TAB.CHEW PO (09:55)
[2021-05-13] MEDS: busPIRone HCl 5 MG TABLET 15 MG PO ×3 (09:55→19:51)
[2021-05-13] MEDS: Topiramate 100 MG TABLET 200 MG PO (09:56)
[2021-05-13] MEDS: hydrOXYzine HCL 50 MG TABLET 100 MG PO ×2 (09:56→19:51)
--- NOTE | 2021-05-13 11:28 | P.PNPSI_ITS ---
Subjective Subjective Date of Service: 05/13/21 Reason For Visit: Psychosis Interim History: Nursing staff reported that she remains mostly on her bed. She requested Klonopin schedule and not PRN. She also asked for her Temazepam at hs. I called [facility] in [place] and they confirm those scripts. NO psychotic symptoms but still very dysphoric. Medication Compliance: Yes Review of Systems Acute medical concerns: No Medical Review of Systems: unchanged Mental Status Exam Mental Status Exam Patient Appearance: Well Grooomed Patient Orientation: Person, Place, Time and Situation Level of Consciousness: Awake Patient Behavior: Cooperative Mood Description: Calm Affect Description: Constricted Patient Cognition Impaired: No Ability to Follow Directions: Good Speech Pattern: Clear Hallucinations: None Delusions: Not Present Thought Process: Linear Thought Content: positive for Circumstantial Judgement: Fair Diagnostics Vital Signs (24Hr): Vital Signs - 24 hr 05/12/21 19:28 05/12/21 21:31 05/13/21 06:00 Temperature 97 F 97 F Pulse Rate 87 80 94 Respiratory Rate 18 16 16 Blood Pressure 130/63 108/54 L 115/60 Pulse Oximetry 96 97 94 05/13/21 06:45 Temperature 97 F Pulse Rate 71 Respiratory Rate 16 Blood Pressure 115/60 Pulse Oximetry 94 Body Mass Index 26.9 Labs Results: 05/07/21 06:31 05/07/21 06:31 Imaging Radiology Impressions: ITS Impressions Head CT 05/04/21 15:25 IMPRESSION: No acute intracranial process seen. 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 Chest X-Ray 05/04/21 17:44 IMPRESSION: Unremarkable examination. Medications Medications Current Medications Generic Name Dose Route Start Last Admin Trade Name Freq PRN Reason Stop Dose Admin Acetaminophen 650 mg 05/05/21 19:04 05/11/21 21:02 Acetaminophen 325 Mg Tablet PO 650 mg Q6H PRN Administration Headache/Pain Mild Scale (1-3) Al Hydroxide/Mg Hydroxide 30 ml 05/05/21 19:04 05/11/21 10:09 Magnesium Hydrox/Alum Hydrox 30 Ml Oral.Susp PO 30 ml Q6H PRN Administration Heartburn/Nausea Amoxicillin/Clavulanate Potassium 500 mg 05/07/21 21:00 05/13/21 06:17 Amoxicillin/Potassium Clav 500 Mg Tablet PO 05/14/21 20:59 500 mg Q8H JARVIS Administration Buspirone HCl 15 mg 05/04/21 21:45 05/13/21 09:55 Buspirone Hcl 5 Mg Tablet PO 15 mg TID JARVIS Administration Calcium Carbonate 750 mg 05/11/21 13:35 05/13/21 09:55 Calcium Carbonate 750 Mg Tab.Chew PO 750 mg Q6H PRN Administration heart burn Clonazepam 0.5 mg 05/12/21 11:15 05/13/21 06:24 Clonazepam 0.5 Mg Tablet PO 0.5 mg TID PRN Administration Anxiety Hydroxyzine HCl 100 mg 05/04/21 21:45 05/13/21 09:56 Hydroxyzine Hcl 50 Mg Tablet PO 100 mg BID JARVIS Administration Ibuprofen 800 mg 05/08/21 16:22 05/12/21 09:25 Ibuprofen 800 Mg Tablet PO 800 mg Q8H PRN Administration Pain, Moderate (Pain Scale 4-6 Magnesium Hydroxide 30 ml 05/05/21 19:04 Milk Of Magnesia 30 Ml Oral.Susp PO DAILY PRN Constipation Olanzapine 5 mg 05/12/21 21:00 05/12/21 20:29 Olanzapine 5 Mg Tablet PO 5 mg BEDTIME JARVIS Administration Omeprazole 20 mg 05/11/21 13:35 05/13/21 06:17 Omeprazole 20 Mg Capsule. PO 20 mg DAILY@0630 JARVIS Administration Topiramate 200 mg 05/05/21 09:00 05/13/21 09:56 Topiramate 100 Mg Tablet PO 200 mg DAILY JARVIS Administration Trazodone HCl 50 mg 05/05/21 19:04 05/06/21 20:45 Trazodone Hcl 50 Mg Tablet PO 50 mg BEDTIME PRN Administration Insomnia Allergies Allergies Allergy/AdvReac Type Severity Reaction Status Date / Time No Known Allergies Allergy Verified 05/04/21 15:15 Assessment & Plan Assessment & Plan (1) Acute psychosis: Status: Acute Code(s): F23 - Brief psychotic disorder Assessment and Plan: PLAN: continue per treatment team Middle age female with acute psychosis, grossly disorganized on admission, probably on delirium due to drug withdrawal, unable to take care of herself. Plan: Lower Zyprexa to 5 mg po qhs and keep Topamax D/C Clonidine 0.1 mg po tid. Continue Augmentin for abscess on the mouth Add Motrin 800 mg po tid PRN Keep Klonopin 0.5 mg po tid and start Temazepam 15 mg po qhs. (2) Benzodiazepine abuse: Status: Acute Code(s): F13.10 - Sedative, hypnotic or anxiolytic abuse, uncomplicated (3) Bipolar disorder: Status: Acute Code(s): F31.9 - Bipolar disorder, unspecified Greater than 50% of the session was spent on counseling and/or coordination of care Reason for contiued inpatient stay Substantial Risk for: inability to function, rapid decompensation and med/psych decompensation
[2021-05-13] MEDS: Acetaminophen 325 MG TABLET 650 MG PO (17:01)
[2021-05-13 18:00] VITALS: BP 127/58; PULSE 89; RESP 16; TEMP 37.2; O2SAT 94
[2021-05-13] MEDS: Temazepam 15 MG CAPSULE PO (19:51)
[2021-05-13] MEDS: OLANZapine 5 MG TABLET PO (19:51)
[2021-05-13 20:19] VITALS: BP 134/55; PULSE 83; RESP 16; TEMP 36.4; O2SAT 95
[2021-05-14] MEDS: clonazePAM 0.5 MG TABLET PO ×4 (01:55→21:01)
[2021-05-14] MEDS: Omeprazole 20 MG CAPSULE.DR PO (05:32)
[2021-05-14] MEDS: Amoxicillin/Potassium Clav 500 MG TABLET PO ×3 (05:33→21:00)
[2021-05-14 05:50] VITALS: BP 158/70; PULSE 75; RESP 16; TEMP 36.8; O2SAT 96
[2021-05-14] MEDS: hydrOXYzine HCL 50 MG TABLET 100 MG PO ×2 (08:08→21:01)
[2021-05-14] MEDS: busPIRone HCl 5 MG TABLET 15 MG PO ×3 (08:08→21:00)
[2021-05-14] MEDS: Topiramate 100 MG TABLET 200 MG PO (08:09)
[2021-05-14 08:52] VITALS: BP 158/70; PULSE 75; RESP 16; TEMP 36.8; O2SAT 96
--- NOTE | 2021-05-14 11:00 | HO.PSYCHPN ---
Subjective Subjective Date of Service: 05/14/21 Reason For Visit: Psychosis Interim History: The patient seems more engaged, able to participate in the unit activities. Today I explained her why she was delirius and apparently her mood has been disregulated for several months and she was coping taking extra Klonopin. Mental Status Exam Mental Status Exam Patient Appearance: Well Grooomed Patient Orientation: Person and Place Level of Consciousness: Awake Patient Behavior: Appropriate and Cooperative Mood Description: Calm Affect Description: Constricted Patient Cognition Impaired: No Ability to Follow Directions: Good Speech Pattern: Clear Hallucinations: None Delusions: Not Present Thought Process: Goal Oriented Thought Content: positive for Circumstantial Depressive Symptoms: Increased Anxiety Judgement: Fair Diagnostics Vital Signs (24Hr): Vital Signs - 24 hr 05/13/21 18:00 05/13/21 20:19 05/14/21 05:50 Temperature 98.9 F 97.5 F 98.3 F Pulse Rate 89 83 75 Respiratory Rate 16 16 16 Blood Pressure 127/58 L 134/55 L 158/70 H Pulse Oximetry 94 95 96 05/14/21 08:52 Temperature 98.3 F Pulse Rate 75 Respiratory Rate 16 Blood Pressure 158/70 H Pulse Oximetry 96 Body Mass Index 26.9 Labs Results: 05/07/21 06:31 05/07/21 06:31 Imaging Radiology Impressions: ITS Impressions Head CT 05/04/21 15:25 IMPRESSION: No acute intracranial process seen. 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 Chest X-Ray 05/04/21 17:44 IMPRESSION: Unremarkable examination. Medications Medications Current Medications Generic Name Dose Route Start Last Admin Trade Name Freq PRN Reason Stop Dose Admin Acetaminophen 650 mg 05/05/21 19:04 05/13/21 17:01 Acetaminophen 325 Mg Tablet PO 650 mg Q6H PRN Administration Headache/Pain Mild Scale (1-3) Al Hydroxide/Mg Hydroxide 30 ml 05/05/21 19:04 05/11/21 10:09 Magnesium Hydrox/Alum Hydrox 30 Ml Oral.Susp PO 30 ml Q6H PRN Administration Heartburn/Nausea Amoxicillin/Clavulanate Potassium 500 mg 05/13/21 12:15 05/14/21 05:33 Amoxicillin/Potassium Clav 500 Mg Tablet PO 500 mg Q8H JARVIS Administration Buspirone HCl 15 mg 05/04/21 21:45 05/14/21 08:08 Buspirone Hcl 5 Mg Tablet PO 15 mg TID JARVIS Administration Calcium Carbonate 750 mg 05/11/21 13:35 05/13/21 09:55 Calcium Carbonate 750 Mg Tab.Chew PO 750 mg Q6H PRN Administration heart burn Clonazepam 0.5 mg 05/12/21 11:15 05/14/21 08:16 Clonazepam 0.5 Mg Tablet PO 0.5 mg TID PRN Administration Anxiety Hydroxyzine HCl 100 mg 05/04/21 21:45 05/14/21 08:08 Hydroxyzine Hcl 50 Mg Tablet PO 100 mg BID JARVIS Administration Ibuprofen 800 mg 05/08/21 16:22 05/12/21 09:25 Ibuprofen 800 Mg Tablet PO 800 mg Q8H PRN Administration Pain, Moderate (Pain Scale 4-6 Magnesium Hydroxide 30 ml 05/05/21 19:04 Milk Of Magnesia 30 Ml Oral.Susp PO DAILY PRN Constipation Olanzapine 5 mg 05/12/21 21:00 05/13/21 19:51 Olanzapine 5 Mg Tablet PO 5 mg BEDTIME JARVIS Administration Omeprazole 20 mg 05/11/21 13:35 05/14/21 05:32 Omeprazole 20 Mg Capsule.Dr PO 20 mg DAILY@0630 JARVIS Administration Temazepam 15 mg 05/13/21 21:00 05/13/21 19:51 Temazepam 15 Mg Capsule PO 15 mg BEDTIME JARVIS Administration Topiramate 200 mg 05/05/21 09:00 05/14/21 08:09 Topiramate 100 Mg Tablet PO 200 mg DAILY JARVIS Administration Trazodone HCl 50 mg 05/05/21 19:04 05/06/21 20:45 Trazodone Hcl 50 Mg Tablet PO 50 mg BEDTIME PRN Administration Insomnia Allergies Allergies Allergy/AdvReac Type Severity Reaction Status Date / Time No Known Allergies Allergy Verified 05/04/21 15:15 Assessment & Plan Assessment & Plan (1) Acute psychosis: Status: Acute Code(s): F23 - Brief psychotic disorder Assessment and Plan: PLAN: continue per treatment team Middle age female with acute psychosis, grossly disorganized on admission, probably on delirium due to drug withdrawal, unable to take care of herself. Plan: Keep Zyprexa 5 mg po qhs and keep Topamax D/C Clonidine 0.1 mg po tid. Continue Augmentin for abscess on the mouth Add Motrin 800 mg po tid PRN Keep Klonopin 0.5 mg po tid and Temazepam 15 mg po qhs. Family meeting with sister tomorrow and discharge planning (2) Benzodiazepine abuse: Status: Acute Code(s): F13.10 - Sedative, hypnotic or anxiolytic abuse, uncomplicated (3) Bipolar disorder: Status: Acute Code(s): F31.9 - Bipolar disorder, unspecified Greater than 50% of the session was spent on counseling and/or coordination of care Reason for contiued inpatient stay Substantial Risk for: inability to function, rapid decompensation and med/psych decompensation
[2021-05-14 17:45] VITALS: BP 146/67; PULSE 80; TEMP 37; O2SAT 96
[2021-05-14] MEDS: Temazepam 15 MG CAPSULE PO (21:00)
[2021-05-14] MEDS: OLANZapine 5 MG TABLET PO (21:00)
[2021-05-14 22:00] VITALS: RESP 16
[2021-05-15] MEDS: Omeprazole 20 MG CAPSULE.DR PO (05:50)
[2021-05-15] MEDS: Amoxicillin/Potassium Clav 500 MG TABLET PO ×2 (05:50→11:55)
[2021-05-15] MEDS: clonazePAM 0.5 MG TABLET PO ×2 (05:50→12:01)
[2021-05-15 06:00] VITALS: BP 151/72; PULSE 84; RESP 16; TEMP 36.4; O2SAT 97
[2021-05-15] MEDS: Topiramate 100 MG TABLET 200 MG PO (08:26)
[2021-05-15] MEDS: busPIRone HCl 5 MG TABLET 15 MG PO (08:26)
[2021-05-15] MEDS: hydrOXYzine HCL 50 MG TABLET 100 MG PO (08:27)
--- NOTE | 2021-05-15 10:50 | PM.PSYDC ---
DS: Providers Provider Date of Service: 05/15/21 Date of admission: 05/05/21 19:28 Date of discharge: 05/15/21 Primary care physician: Autumn Physician Attending physician on admission: Femi Hannah Attending physician on discharge: Femi Hannah DS: Diagnosis Discharge Diagnosis (1) Benzodiazepine abuse: Status: Acute (2) Bipolar disorder: Status: Acute (3) Delirium due to known physiological condition: Status: Acute DS: Medications Discharge Medications Home Medications: Home Medications Medication Instructions Recorded Confirmed buspirone [BuSpar] 15 mg PO TID 05/04/21 05/04/21 clonazepam [Klonopin] 1 mg PO BID 05/04/21 05/04/21 hydroxyzine pamoate 100 mg PO BID 05/04/21 05/04/21 temazepam 15 mg PO BEDTIME PRN 05/04/21 05/04/21 topiramate 200 mg PO DAILY 05/04/21 05/04/21 Discharge Plan Discharge Patient Disposition: Home, Self-Care Discharge Diagnosis: Delirium due to known physiological condition Bipolar disorder Benzodiazepine dependence Referrals: Servcies [Other] - 2 Weeks (Referral made to [facility] on 05/09/21, PCP appointment scheduled for Wednesday, May 26, 2021 @ 11 AM on [place], [place]. T/w spoke with Cande EDWARD from [facility], she scheduled appointments immediately following PCP appointment @ 12 PM to obtain therapists and psychiatrists. Please follow up with [facility] at [phone] with any questions or concerns.) Physician,None [Primary Care Provider] - 1 Week Discharge Medications: New ibuprofen 800 mg Tablet 800 mg PO Q8H PRN (Reason: Pain, Moderate (Pain Scale 4-6) 30 Days Qty: 60 RF: 0 clonazepam 0.5 mg Tablet 0.5 mg PO TID PRN (Reason: Anxiety) 30 Days Qty: 90 RF: 0 olanzapine 5 mg Tablet 5 mg PO BEDTIME 30 Days Qty: 30 RF: 0 hydroxyzine HCl 50 mg Tablet 100 mg PO BID 30 Days Qty: 120 RF: 0 temazepam 15 mg Capsule 15 mg PO BEDTIME 30 Days Qty: 30 RF: 0 omeprazole 20 mg Capsule,Delayed Release(Dr/Ec) 20 mg PO DAILY@0630 30 Days Qty: 30 RF: 0 amoxicillin-pot clavulanate 500-125 mg Tablet 500 mg PO Q8H 5 Days Qty: 12 RF: 0 topiramate 100 mg Tablet 200 mg PO DAILY 30 Days Qty: 60 RF: 0 Continued hydroxyzine pamoate 100 mg Capsule 100 mg PO BID RF: 0 temazepam 15 mg Capsule 15 mg PO BEDTIME PRN (Reason: Anxiety) RF: 0 topiramate 200 mg Tablet 200 mg PO DAILY 30 Days Qty: 60 RF: 0 buspirone 15 mg Tablet 15 mg PO TID 30 Days Qty: 90 RF: 0 Discontinued clonazepam [Klonopin] 1 mg Tablet 1 mg PO BID RF: 0 Discharge Orders: Discharge Order (Routine); Ordered 05/15/21 Ordered By: Femi Hannah Diet: advance to usual diet Activity on Discharge: As tolerated Stand Alone Forms: Patient Portal Discharge page Care Plan Goals: Continue with mood stabilizers. Care Plan Goals from ED achieved Health Concerns: Continue care with PCP Plan of Treatment: Continue treatment at the [facility] for [facility] Assessment: Middle age female with Bipolar Disorder, highly functional at baseline, admitted for delirium due to benzodiazepine abuse, with psychotic symptoms that cleared after a few days, currently stable Mental Status Exam Mental Status Exam Patient Appearance: Well Grooomed Patient Orientation: Person, Place, Time and Situation Level of Consciousness: Awake Patient Behavior: Appropriate Mood Description: Calm Affect Description: Appropriate Patient Cognition Impaired: No Ability to Follow Directions: Good Speech Pattern: Clear Memory Description: Intact Hallucinations: None Delusions: Not Present Thought Process: Goal Oriented and Linear Thought Content: positive for Intact Judgement: Fair Data Imaging Diagnostic Imaging Impressions Head CT 05/04/21 15:25 IMPRESSION: No acute intracranial process seen. 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 Chest X-Ray 05/04/21 17:44 IMPRESSION: Unremarkable examination. DS: Summary Hospital Course Hospital Course: The patient was brought to the ED by her sister who lives with her since February this year. Apparently, she took a month supply of Klonopin in a few days and later, she was grossly disorganized, with psychotic features elicited by disorganized behavior, auditory and visual hallucinations and altered mental status with periods of complete loss of consciousness. In the ED, she needed to be chemically restrained with Zyprexa IM. She was admitted into the unit with the initial diagnosis of psychosis NOS acute. On intake, she was unable to put together a full sentence, she refused to sign any paperwork and she was frankly delirious with psychotic symptoms. We started her on Zyprexa 7.5 mg po qhs to target psychosis and delirium.. We put her on COWS, we started on a low dose of Klonopin TID and she Clonidine since her pulse was over 100 the first 2 days. Her cognition and mental status improved, still with some residual withdrawal symptoms for several days but she was able to sign herself into the hospital. We gather collateral information and apparently, she had the diagnosis of bipolar disorder and PTSD for several years and she had sporadic benzodiazepine abuse. She lived and was treated by the [facility] until recently, that she came to [place] on February and it seems that her behavior was more erratic in the last months due to poor control of her mood. Eventually, we lowered Zyprexa to 5 mg, kept her Topamax and keep her on her other medications. She improved dramatically, she was able to participate on the unit's activity and she was able to do her own ADL's. Since there were no safety concerns, discharge planning was discussed. Time spent discussing smoking cessation with patient: 3 to 10 minutes Status at Discharge Cognitive/behavioral status at discharge: Normal Functional status at discharge: independent ambulation Overall status at discharge: patient is back to baseline Time Spent with Patient Time attestation: Total time spent providing and/or coordinating discharge services: Time spent: Less than 30 minutes
== END 2021-05-15 12:15 | disposition home or self-care (01) | DRG 885 ==
LOC: HO.ED 05-05 19:11 → HO.PGERI 05-05 19:38
PROVIDERS: Emergency Medicine; Physician Assistant; Admitting Provider Psychiatry & Neurology Psychiatry; Emergency Provider Emergency Medicine; Visit Provider Psychiatry & Neurology Psychiatry
DX: F31.9 Bipolar disorder, unspecified (principal); F13.188 Sedative, hypnotic or anxiolytic abuse with other sedative, hypnotic or anxiolytic-induced disorder; Z20.822 Contact with and (suspected) exposure to COVID-19; Z87.891 Personal history of nicotine dependence; Z79.1 Long term (current) use of non-steroidal anti-inflammatories (NSAID); Z79.899 Other long term (current) drug therapy
CPT/HCPCS: 36415; 70450; 71045; 80048; 80061; 80076; 80143; 80179; 80307; 81003; 82077; 82140; 83036; 83605; 83690; 83735; 84443; 85025; 87635; 88112; 93005; 99285; J1200; J2060

== ENCOUNTER 2021-06-01 00:57 | Inpatient (IN) | payer MEDICARE, SELFPAY ==
--- NOTE | 2021-06-01 | ECG_ITS ---
Test Reason : OVERDOSE Blood Pressure : / mmHG Vent. Rate : 075 BPM Atrial Rate : 075 BPM P-R Int : 194 ms QRS Dur : 086 ms QT Int : 408 ms P-R-T Axes : 040 016 055 degrees QTc Int : 455 ms Normal sinus rhythm Cannot rule out inferior infarct Abnormal ECG When compared with ECG of 04-MAY-2021 15:54, No significant change was found Referred By: Debby Doss Electronically Signed By:Gil Jacome
[2021-06-01 01:08] VITALS: BP 150/80; PULSE 92; O2SAT 98
[2021-06-01 01:15] VITALS: BP 116/63; PULSE 84; RESP 16; TEMP 36.8; O2SAT 95; BMI 26.6
--- NOTE | 2021-06-01 01:34 | MHC.CARE ---
CARE team aware of pt and will be evaluated following medical clearance and pending staff availability.
--- NOTE | 2021-06-01 02:52 | ED.PSYCH ---
HPI - Psych General Chief Complaint: Psychiatric Symptoms Stated Complaint: OVERMEDICATED FOR ANXIETY ATTACK W/KLONOPIN Time Seen by Provider: 06/01/21 02:37 Source: patient Mode of arrival: EMS History of Present Illness HPI Narrative: 66-year-old female with longstanding history of depression, bipolar, anxiety has been in intensive therapy through the [facility] since 2006 and states that she has been admitted for. She presents this evening via EMS after she called them when she took handfuls of her Klonopin that she reports as 6-10 0.5 mg Klonopin and 5 -15 mg temazepam. Patient states that she has attempted to call her psychiatrist but left messages at both the phone as well as female. She states that she feels sad and just does not want to go on because she feels that everyone has turned their back on her. She states that she came up from [place] in her sister is refusing to allow her to stay with her and when she tried to reach out to her daughter and her best friend who lives in [facility] a they wanted ?nothing to do with me?. Related Data Home Medications Medication Instructions Recorded Confirmed hydroxyzine pamoate 100 mg PO BID 05/04/21 05/04/21 temazepam 15 mg PO BEDTIME PRN 05/04/21 05/04/21 Previous Rx's Medication Instructions Recorded amoxicillin-pot clavulanate 500 mg PO Q8H 5 Days #12 tab 05/15/21 buspirone 15 mg PO TID 30 Days #90 tab 05/15/21 clonazepam 0.5 mg PO TID PRN 30 Days #90 tab 05/15/21 hydroxyzine HCl 100 mg PO BID 30 Days #120 tab 05/15/21 ibuprofen 800 mg PO Q8H PRN 30 Days #60 tab 05/15/21 olanzapine 5 mg PO BEDTIME 30 Days #30 tab 05/15/21 omeprazole 20 mg PO DAILY@0630 30 Days #30 cap 05/15/21 temazepam 15 mg PO BEDTIME 30 Days #30 cap 05/15/21 topiramate 200 mg PO DAILY 30 Days #60 tab 05/15/21 topiramate 200 mg PO DAILY 30 Days #60 tab 05/15/21 Allergies Allergy/AdvReac Type Severity Reaction Status Date / Time No Known Allergies Allergy Verified 05/04/21 15:15 Review of Systems Review of Systems: Pertinent positives and negatives as stated in HPI 10 point review of systems otherwise negative. [facility] Past Medical History Source: nursing notes reviewed Medical History History of broken leg Hx of rheumatic fever Psychiatric diagnosis Surgical History H/O left knee surgery H/O lumbosacral spine surgery Social History Social History Household Members: Family and Unknown / Unable to assess Housing: Unknown / Unable to assess Do you presently have visiting nurse or other home services: No Unable to assess alcohol history related to: Unknown Patient Tobacco Use Status: Former Tobacco user Tobacco use type: Cigarette e-Cigarette/Vaping Use: Never Used Substance Use Type: Prescription Drugs Advance Directives: No Advance Directives Information Provided: No service: Yes ([employer]) Sexual orientation: Unable to state due to current psychiatric condition. Physical Exam Vital Signs: Vital Signs: Last Vital Signs Temp 98.3 F 06/01/21 01:15 Pulse 79 06/01/21 05:35 Resp 16 06/01/21 05:35 BP 129/73 06/01/21 05:35 Pulse Ox 94 06/01/21 05:35 Body Mass Index 26.6 VITAL SIGNS: Reviewed. GENERAL: Well developed, well nourished, in no acute distress. HEAD: Normocephalic/atraumatic EYES: PERRLA, EOMI OROPHARYNX: no oral lesions noted, posterior pharynx clear LUNGS: Normal breath sounds. No adventitious sounds or accessory muscle use. SpO2<95> CARDIOVASCULAR: Regular rate and rhythm without noted murmurs ABDOMEN: Soft, non-tender, non-distended with bowel sounds. SKIN: Inspection of the skin reveals no rashes NEUROLOGIC: Alert and oriented x 4. Strength and sensation to light touch were grossly intact x 4. PSYCH: Depressed affect, logical thought process, Course Course Course Narrative: 66-year-old female with history and clinical presentation consistent with suicide attempt and was sectioned and placed on a one-to-one. Poison control was contacted and we are currently following their recommendations for toxicology. Patient is coherent and although lab work is still pending I feel that this patient is medically cleared otherwise for evaluation by the crisis/behavioral team. All investigations reviewed without acute findings. Reevaluation(s) Reevaluation #1: Patient placed in physician observation because the patient needed more time for evaluation by crisis/behavioral team and results of investigations. At the time observation was started the patient's vital signs were stable, patient is alert and oriented, neuro: Nonfocal, CV RRR, lungs clear Time: 02:57 MDM - Psych Lab Data Result diagrams: 06/01/21 03:37 06/01/21 03:37 Labs: Lab Results 06/01/21 06/01/21 06/01/21 Range/Units 03:37 03:37 03:37 WBC 9.5 (4.8-10.8) X10*3/uL RBC 4.82 (4.20-5.50) X10*6/uL Hgb 12.2 (12.0-16.0) g/dl Hct 39.7 (37-47) % MCV 82.4 (80-98) fL MCH 25.3 L (27.0-33.0) pg MCHC 30.7 L (31.0-35.0) g/dl RDW 13.7 (11.0-16.0) % Plt Count 277 (160-400) X10*3/uL MPV 9.1 L (9.4-12.3) fL Immature Gran % (Auto) 0.1 (0.0-0.4) % Neut % (Auto) 49.1 (45-73) % Lymph % (Auto) 34.6 (20-40) % [place] % (Auto) 8.7 (2-11) % Eos % (Auto) 6.9 H (0-4) % Baso % (Auto) 0.6 (0-2) % Lymph # (Auto) 3.3 (1.2-4.9) X10*3/uL [place] # (Auto) 0.8 (0.1-1.2) X10*3/uL Eos # (Auto) 0.7 H (0.0-0.4) X10*3/uL Baso # (Auto) 0.1 (0.0-0.2) X10*3/uL Abs Immat Gran (auto) 0.01 (0.00-0.03) X10*3/uL Absolute Neuts (auto) 4.7 (2.0-8.3) X10*3/uL Absolute Nucleated RBC 0.000 (0.0-0.012) X10*3/uL Nucleated RBC % (auto) 0.0 (0.0-0.2) /100WBC Sodium 140 (135-145) mmol/L Potassium 3.9 D (3.3-5.1) mmol/L Chloride 107 (96-108) mmol/L Carbon Dioxide 24 (22-29) mmol/L Anion Gap 13 (12-20) BUN 16 D (9-16) mg/dL Creatinine 0.98 (0.5-1.4) mg/dL Estim Creat Clear Calc 64.5 Estimated GFR 57 Random Glucose 109 (60-115) mg/dL Calcium 8.9 (8.4-10.2) mg/dL Total Bilirubin 0.3 (0.0-1.0) mg/dL AST 14 (5-31) U/L ALT 11 (0-31) U/L Alkaline Phosphatase 121 H (39-117) U/L Total Protein 6.7 (6.5-8.0) g/dL Albumin 4.1 (3.5-5.0) g/dL Salicylates < 5.0 L (15-30) mg/dL Acetaminophen < 1 (<30) mcg/mL Ethyl Alcohol < 10 mg/dL COVID-19 ([facility]) (Negative) COVID-19 Clin Com 06/01/21 Range/Units 03:39 WBC (4.8-10.8) X10*3/uL RBC (4.20-5.50) X10*6/uL Hgb (12.0-16.0) g/dl Hct (37-47) % MCV (80-98) fL MCH (27.0-33.0) pg MCHC (31.0-35.0) g/dl RDW (11.0-16.0) % Plt Count (160-400) X10*3/uL MPV (9.4-12.3) fL Immature Gran % (Auto) (0.0-0.4) % Neut % (Auto) (45-73) % Lymph % (Auto) (20-40) % [place] % (Auto) (2-11) % Eos % (Auto) (0-4) % Baso % (Auto) (0-2) % Lymph # (Auto) (1.2-4.9) X10*3/uL [place] # (Auto) (0.1-1.2) X10*3/uL Eos # (Auto) (0.0-0.4) X10*3/uL Baso # (Auto) (0.0-0.2) X10*3/uL Abs Immat Gran (auto) (0.00-0.03) X10*3/uL Absolute Neuts (auto) (2.0-8.3) X10*3/uL Absolute Nucleated RBC (0.0-0.012) X10*3/uL Nucleated RBC % (auto) (0.0-0.2) /100WBC Sodium (135-145) mmol/L Potassium (3.3-5.1) mmol/L Chloride (96-108) mmol/L Carbon Dioxide (22-29) mmol/L Anion Gap (12-20) BUN (9-16) mg/dL Creatinine (0.5-1.4) mg/dL Estim Creat Clear Calc Estimated GFR Random Glucose (60-115) mg/dL Calcium (8.4-10.2) mg/dL Total Bilirubin (0.0-1.0) mg/dL AST (5-31) U/L ALT (0-31) U/L Alkaline Phosphatase (39-117) U/L Total Protein (6.5-8.0) g/dL Albumin (3.5-5.0) g/dL Salicylates (15-30) mg/dL Acetaminophen (<30) mcg/mL Ethyl Alcohol mg/dL COVID-19 ([facility]) Negative (Negative) COVID-19 Clin Com See Note ECG Data Attestation: I personally reviewed and interpreted this ECG as follows: Prior ECG tracings: available for review (05/04/2021 no acute changes on comparison) Interpretation: Normal sinus rhythm, HR-75, no STEMI, AK/QRS/QTC are within normal limits. Discharge Plan Discharge Prescriptions: No Action hydroxyzine pamoate 100 mg Capsule 100 mg PO BID RF: 0 temazepam 15 mg Capsule 15 mg PO BEDTIME PRN (Reason: Anxiety) RF: 0 ibuprofen 800 mg Tablet 800 mg PO Q8H PRN (Reason: Pain, Moderate (Pain Scale 4-6) 30 Days Qty: 60 RF: 0 clonazepam 0.5 mg Tablet 0.5 mg PO TID PRN (Reason: Anxiety) 30 Days Qty: 90 RF: 0 olanzapine 5 mg Tablet 5 mg PO BEDTIME 30 Days Qty: 30 RF: 0 hydroxyzine HCl 50 mg Tablet 100 mg PO BID 30 Days Qty: 120 RF: 0 temazepam 15 mg Capsule 15 mg PO BEDTIME 30 Days Qty: 30 RF: 0 omeprazole 20 mg Capsule,Delayed Release(Dr/Ec) 20 mg PO DAILY@0630 30 Days Qty: 30 RF: 0 topiramate 100 mg Tablet 200 mg PO DAILY 30 Days Qty: 60 RF: 0 amoxicillin-pot clavulanate 500-125 mg Tablet 500 mg PO Q8H 5 Days Qty: 12 RF: 0 topiramate 200 mg Tablet 200 mg PO DAILY 30 Days Qty: 60 RF: 0 buspirone 15 mg Tablet 15 mg PO TID 30 Days Qty: 90 RF: 0
[2021-06-01 03:46] LABS: MANUAL DIFF FLAG NO
[2021-06-01 03:47] LABS: Basophils Absolute Auto 0.1 X10*3/uL (0.0-0.2); Basophils Percent Auto 0.6 % (0-2); Eosinophils Absolute Auto 0.7 X10*3/uL (0.0-0.4); Eosinophils Percent Auto 6.9 % (0-4); Hematocrit 39.7 % (37-47); Hemoglobin 12.2 g/dl (12.0-16.0); Imm Gran Abs Auto 0.01 X10*3/uL (0.00-0.03); Imm Gran Pct Auto 0.1 % (0.0-0.4); Lymphocytes Absolute Auto 3.3 X10*3/uL (1.2-4.9); Lymphocytes Percent Auto 34.6 % (20-40); Mean Corpuscular HGB Conc 30.7 g/dl (31.0-35.0); Mean Corpuscular Hemoglobin 25.3 pg (27.0-33.0); Mean Corpuscular Volume 82.4 fL (80-98); Mean Platelet Volume 9.1 fL (9.4-12.3); Monocytes Absolute Auto 0.8 X10*3/uL (0.1-1.2); Monocytes Percent Auto 8.7 % (2-11); Neutrophils Absolute Auto 4.7 X10*3/uL (2.0-8.3); Neutrophils Percent Auto 49.1 % (45-73); Platelet Count 277 X10*3/uL (160-400); Red Blood Count 4.82 X10*6/uL (4.20-5.50); Red Cell Distribution Width 13.7 % (11.0-16.0); White Blood Count 9.5 X10*3/uL (4.8-10.8)
[2021-06-01 03:58] LABS: COVID-19 Test Negative (Negative); IDNOW Serial# 9DD0AD1C
[2021-06-01 04:07] LABS: Ethanol < 10 mg/dL
[2021-06-01 04:10] LABS: Acetaminophen LAB < 1 mcg/mL (<30); Alanine Aminotransferase 11 U/L (0-31); Albumin Level 4.1 g/dL (3.5-5.0); Alkaline Phosphatase 121 U/L (39-117); Anion Gap 13 (12-20); Aspartate Amino Transferase 14 U/L (5-31); Bilirubin Total 0.3 mg/dL (0.0-1.0); Blood Urea Nitrogen 16 mg/dL (9-16); Calcium 8.9 mg/dL (8.4-10.2); Carbon Dioxide 24 mmol/L (22-29); Chloride 107 mmol/L (96-108); Creatinine Clr Calc Pharmacy 64.5; Estimated Glomerular Filt Rate 57; Glucose Random 109 mg/dL (60-115); Potassium 3.9 mmol/L (3.3-5.1); Salicylate < 5.0 mg/dL (15-30); Sodium 140 mmol/L (135-145); Total Protein 6.7 g/dL (6.5-8.0)
[2021-06-01 05:35] VITALS: BP 129/73; PULSE 79; RESP 16; O2SAT 94
[2021-06-01 06:00] VITALS: BP 142/70; PULSE 88; RESP 16; O2SAT 95
--- NOTE | 2021-06-01 09:16 | PC.NURSE ---
sleeping, nad, seen by care team and plan to admit, sitter at bedside,
[2021-06-01] MEDS: Topiramate 100 MG TABLET 200 MG PO (12:59)
[2021-06-01] MEDS: hydrOXYzine HCL 50 MG TABLET 100 MG PO ×2 (12:59→20:15)
[2021-06-01] MEDS: Omeprazole 20 MG CAPSULE.DR PO (13:00)
[2021-06-01 13:44] VITALS: BP 98/54; PULSE 64; RESP 16; O2SAT 96
[2021-06-01] MEDS: busPIRone HCl 5 MG TABLET 15 MG PO ×2 (16:44→20:15)
[2021-06-01 17:24] LABS: Appearance Urine CLEAR; Color Urine YELLOW; Glucose Urine UA NEG (NEG); Leukocyte Esterase Urine NEG (NEG); Nitrite Urine NEG (NEG); Urine Blood NEG (NEG); Urine Ketones NEG (NEG); Urine Protein NEG (NEG-TRACE)
[2021-06-01 17:48] LABS: Amphetamine Screen Urine Not Detected (Not Detect); Barbiturates, Urine Not Detected (Not Detect); Benzodiazepines Screen Urine POSITIVE (Not Detect); Cannabinoid Screen Urine POSITIVE (Not Detect); Cocaine Screen Urine Not Detected (Not Detect); Opiate Screen Urine Not Detected (Not Detect); Phencyclidine Screen Urine POSITIVE (Not Detect)
[2021-06-01] MEDS: clonazePAM 0.5 MG TABLET PO (20:15)
[2021-06-01] MEDS: OLANZapine 5 MG TABLET PO (20:15)
--- NOTE | 2021-06-01 20:44 | MHC.CARE ---
Bedsearch Note: State wide search- 1 female bed available. Eval and medical faxed to [facility] for review. &
[2021-06-02] MEDS: Omeprazole 20 MG CAPSULE.DR PO (05:39)
[2021-06-02 05:43] VITALS: BP 118/62; PULSE 68; RESP 16; TEMP 36.8; O2SAT 95
--- NOTE | 2021-06-02 06:44 | PC.NURSE ---
Patient slept through the night, no distress observed/reported, medication compliant, mostly isolated in her room, behavior appropriate, patient is section 12 inpatient bed search, will continue to monitor.
--- NOTE | 2021-06-02 07:44 | PC.NURSE ---
pt asleep on bed in room. breathing is even and unlabored. NAD. will continue to monitor
[2021-06-02 09:05] VITALS: BP 110/67; PULSE 71; RESP 15; TEMP 36.6; O2SAT 94
[2021-06-02] MEDS: hydrOXYzine HCL 50 MG TABLET 100 MG PO ×2 (09:55→23:08)
[2021-06-02] MEDS: Topiramate 100 MG TABLET 200 MG PO (09:55)
[2021-06-02] MEDS: busPIRone HCl 5 MG TABLET 15 MG PO ×2 (09:55→15:06)
--- NOTE | 2021-06-02 11:45 | PC.NURSE ---
PT ASLEEP ON BED IN ROOM. BREATHING IS EVEN AND UNLABORED. NAD. WILL CONTINUE TO MONITOR
[2021-06-02 18:53] VITALS: BP 124/71; PULSE 80; TEMP 36.2; O2SAT 96
--- NOTE | 2021-06-02 23:02 | PC.ADMIT ---
66years old female Pt admitted from the ED with reports of SI. Pt had overdosed on her prescribed medications. DX: Bipolar disorder. Upon admission pt appears cooperative and responded well to questions. Speech normal rate, tone, volume and bijal. Pt denies SI/HI plan or intent. Pt. endorsed feeling depressed and loss of appetite. Pt states everything changed when she moved from [place] to live with her sister in [place] who eventually kicked her out. Pt feels hopeless and helpless. Currently in need of help for apartment. Pt feels neglect and resorted to isolation/SI since no family member would answer her call.
[2021-06-02] MEDS: OLANZapine 5 MG TABLET PO (23:08)
[2021-06-02] MEDS: clonazePAM 0.5 MG TABLET PO (23:37)
[2021-06-02] MEDS: Temazepam 15 MG CAPSULE PO (23:37)
[2021-06-03] MEDS: busPIRone HCl 5 MG TABLET 15 MG PO ×3 (10:00→21:50)
[2021-06-03] MEDS: Omeprazole 20 MG CAPSULE.DR PO (10:00)
[2021-06-03] MEDS: hydrOXYzine HCL 50 MG TABLET 100 MG PO ×2 (10:00→21:51)
[2021-06-03 10:08] VITALS: BP 143/65; PULSE 66; RESP 16; TEMP 36.2; O2SAT 98
[2021-06-03 10:12] LABS: Estimated Average Glucose 114 mg/dL; Hemoglobin A1c % 5.6 %
[2021-06-03 10:16] LABS: Cholesterol 226 mg/dL; HDL Cholesterol 50 mg/dL; LDL Cholesterol Calculated 142 mg/dl; Triglycerides 172 mg/dL
[2021-06-03] MEDS: clonazePAM 0.5 MG TABLET PO ×2 (12:02→21:59)
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
[2021-06-03] MEDS: Topiramate 100 MG TABLET PO (16:12)
[2021-06-03 17:05] VITALS: BP 115/59; PULSE 82; RESP 18; TEMP 35.6; O2SAT 96
[2021-06-03] MEDS: OLANZapine 5 MG TABLET PO (21:51)
[2021-06-03] MEDS: Temazepam 15 MG CAPSULE PO (21:59)
[2021-06-04 06:00] VITALS: BP 123/63; PULSE 79; RESP 16; TEMP 36.3; O2SAT 97
[2021-06-04] MEDS: Omeprazole 20 MG CAPSULE.DR PO (06:34)
[2021-06-04] MEDS: Topiramate 100 MG TABLET PO (08:30)
[2021-06-04] MEDS: busPIRone HCl 5 MG TABLET 15 MG PO ×3 (08:30→20:12)
[2021-06-04] MEDS: hydrOXYzine HCL 50 MG TABLET 100 MG PO ×2 (08:30→20:12)
[2021-06-04] MEDS: clonazePAM 0.5 MG TABLET PO ×3 (08:44→21:38)
--- NOTE | 2021-06-04 12:16 | HO.PSYCHPN ---
Subjective Subjective Date of Service: 06/04/21 Reason For Visit: Agitation Interim History: pt reports her mood is up and down, feeling safe. met with SW, [facility]. no other complaints or requests. per staff, safe on unit. homeless, fatigued, quiet. no SI/HI. Mental Status Exam Mental Status Exam Narrative: pt seated on edge of bed. PMR. cooperative. speech soft and somewhat slowed, flattened. nml amount, mildly increased latency. thoughts linear and logical, affect blunted, mood up and down. denies SI (MRE 5 days ago). Diagnostics Vital Signs (24Hr): Vital Signs - 24 hr 06/03/21 17:05 06/04/21 06:00 Temperature 96.1 F L 97.4 F Pulse Rate 82 79 Respiratory Rate 18 16 Blood Pressure 115/59 L 123/63 Pulse Oximetry 96 97 Body Mass Index 26.6 Labs Results: 06/01/21 03:37 06/01/21 03:37 Labs: Laboratory Results - last 48 hr 06/03/21 06/03/21 06/03/21 09:38 09:38 09:38 Estimat Average Glucose 114 Hemoglobin A1c % 5.6 Triglycerides 172 Cholesterol 226 D LDL Cholesterol, Calc 142 HDL Cholesterol 50 Folate 7.4 TSH 3.90 Medications Medications Current Medications Generic Name Dose Route Start Last Admin Trade Name Freq PRN Reason Stop Dose Admin Acetaminophen 650 mg 06/02/21 21:08 Acetaminophen 325 Mg Tablet PO Q6H PRN Headache/Pain Mild Scale (1-3) Al Hydroxide/Mg Hydroxide 30 ml 06/02/21 21:08 Magnesium Hydrox/Alum Hydrox 30 Ml Oral.Susp PO Q6H PRN Heartburn/Nausea Buspirone HCl 15 mg 06/01/21 15:00 06/04/21 08:30 Buspirone Hcl 5 Mg Tablet PO 15 mg TID JARVIS Administration Clonazepam 0.5 mg 06/01/21 11:40 06/04/21 08:44 Clonazepam 0.5 Mg Tablet PO 0.5 mg TID PRN Administration Anxiety Hydroxyzine HCl 100 mg 06/01/21 11:45 06/04/21 08:30 Hydroxyzine Hcl 50 Mg Tablet PO 100 mg BID JARVIS Administration Hydroxyzine HCl 25 mg 06/02/21 21:08 Hydroxyzine Hcl 25 Mg Tablet PO BEDTIME PRN Anxiety Ibuprofen 800 mg 06/01/21 11:40 Ibuprofen 800 Mg Tablet PO Q8H PRN Pain, Moderate (Pain Scale 4-6 Magnesium Hydroxide 30 ml 06/02/21 21:08 Milk Of Magnesia 30 Ml Oral.Susp PO DAILY PRN Constipation Olanzapine 5 mg 06/01/21 21:00 06/03/21 21:51 Olanzapine 5 Mg Tablet PO 5 mg BEDTIME JARVIS Administration Omeprazole 20 mg 06/01/21 11:45 06/04/21 06:34 Omeprazole 20 Mg Capsule.Dr PO 20 mg DAILY@0630 JARVIS Administration Temazepam 15 mg 06/02/21 23:07 06/03/21 21:59 Temazepam 15 Mg Capsule PO 15 mg BEDTIME PRN Administration Sleep Topiramate 100 mg 06/04/21 09:00 06/04/21 08:30 Topiramate 100 Mg Tablet PO 100 mg DAILY JARVIS Administration Trazodone HCl 50 mg 06/02/21 21:08 Trazodone Hcl 50 Mg Tablet PO BEDTIME PRN Insomnia Allergies Allergies Allergy/AdvReac Type Severity Reaction Status Date / Time No Known Allergies Allergy Verified 05/04/21 15:15 Assessment & Plan Assessment & Plan (1) MDD (major depressive disorder): Status: Acute Code(s): F32.9 - Major depressive disorder, single episode, unspecified Assessment and Plan: adjustment disorder within MDD. continue home medications regimen for now: zyprexa, bupsar. SI resolved. refer into [place] system for housing help and for treatment of mental health concerns. (2) Anxiety disorder, unspecified: Status: Acute Code(s): F41.9 - Anxiety disorder, unspecified Assessment and Plan: likely PTSD. continue home meds for now: zyprexa, buspar, klonopin, temazepam, topiramate. Greater than 50% of the session was spent on counseling and/or coordination of care Reason for contiued inpatient stay Substantial Risk for: harm to self
[2021-06-04 15:22] LABS: Folate 7.7 ng/mL (> or = 4.0); Vitamin B12 251 pg/mL (200-900)
[2021-06-04 18:00] VITALS: BP 108/59; PULSE 75; RESP 16; TEMP 36.1; O2SAT 96
[2021-06-04] MEDS: OLANZapine 5 MG TABLET PO (20:12)
[2021-06-04] MEDS: Temazepam 15 MG CAPSULE PO (21:37)
[2021-06-05 06:00] VITALS: BP 106/51; PULSE 85; TEMP 36.8; O2SAT 94
[2021-06-05] MEDS: Omeprazole 20 MG CAPSULE.DR PO (06:48)
[2021-06-05] MEDS: Topiramate 100 MG TABLET PO (09:00)
[2021-06-05] MEDS: hydrOXYzine HCL 50 MG TABLET 100 MG PO ×2 (09:00→21:12)
[2021-06-05] MEDS: busPIRone HCl 5 MG TABLET 15 MG PO ×3 (09:00→21:11)
[2021-06-05] MEDS: clonazePAM 0.5 MG TABLET PO ×2 (10:51→21:30)
--- NOTE | 2021-06-05 12:59 | HO.PSYCHPN ---
Subjective Subjective Date of Service: 06/05/21 Reason For Visit: Agitation Interim History: pt reports her mood is OK, feeling safe. working on transfer to [facility] - likely won't receive word until sometime next week. reports poor sleep last night, explains that just happens sometimes, declines any med changes. no other complaints or requests. per staff, spending most of her time in bed, isolative to room. sleeping much, took PRN klonopin last noc. Mental Status Exam Mental Status Exam Narrative: pt sleeping in bed, covered by multiple blankets. rousable to voice. PMR. cooperative. speech soft and somewhat slowed, flattened. decr amount, mildly increased latency. thoughts linear and logical, affect blunted. no SI/HI./AVH expressed. Diagnostics Vital Signs (24Hr): Vital Signs - 24 hr 06/04/21 18:00 06/05/21 06:00 Temperature 96.9 F 98.3 F Pulse Rate 75 85 Respiratory Rate 16 Blood Pressure 108/59 L 106/51 L Pulse Oximetry 96 94 Body Mass Index 26.6 Labs Results: 06/01/21 03:37 06/01/21 03:37 Labs: Laboratory Results - last 48 hr 06/03/21 09:38 Vitamin B12 251 Folate 7.7 Medications Medications Current Medications Generic Name Dose Route Start Last Admin Trade Name David PRN Reason Stop Dose Admin Acetaminophen 650 mg 06/02/21 21:08 Acetaminophen 325 Mg Tablet PO Q6H PRN Headache/Pain Mild Scale (1-3) Al Hydroxide/Mg Hydroxide 30 ml 06/02/21 21:08 Magnesium Hydrox/Alum Hydrox 30 Ml Oral.Susp PO Q6H PRN Heartburn/Nausea Buspirone HCl 15 mg 06/01/21 15:00 06/05/21 09:00 Buspirone Hcl 5 Mg Tablet PO 15 mg TID JARVIS Administration Clonazepam 0.5 mg 06/01/21 11:40 06/05/21 10:51 Clonazepam 0.5 Mg Tablet PO 0.5 mg TID PRN Administration Anxiety Hydroxyzine HCl 100 mg 06/01/21 11:45 06/05/21 09:00 Hydroxyzine Hcl 50 Mg Tablet PO 100 mg BID JARVIS Administration Hydroxyzine HCl 25 mg 06/02/21 21:08 Hydroxyzine Hcl 25 Mg Tablet PO BEDTIME PRN Anxiety Ibuprofen 800 mg 06/01/21 11:40 Ibuprofen 800 Mg Tablet PO Q8H PRN Pain, Moderate (Pain Scale 4-6 Magnesium Hydroxide 30 ml 06/02/21 21:08 Milk Of Magnesia 30 Ml Oral.Susp PO DAILY PRN Constipation Olanzapine 5 mg 06/01/21 21:00 06/04/21 20:12 Olanzapine 5 Mg Tablet PO 5 mg BEDTIME JARVIS Administration Omeprazole 20 mg 06/01/21 11:45 06/05/21 06:48 Omeprazole 20 Mg Capsule. PO 20 mg DAILY@0630 JARVIS Administration Temazepam 15 mg 06/02/21 23:07 06/04/21 21:37 Temazepam 15 Mg Capsule PO 15 mg BEDTIME PRN Administration Sleep Topiramate 100 mg 06/04/21 09:00 06/05/21 09:00 Topiramate 100 Mg Tablet PO 100 mg DAILY JARVIS Administration Trazodone HCl 50 mg 06/02/21 21:08 Trazodone Hcl 50 Mg Tablet PO BEDTIME PRN Insomnia Allergies Allergies Allergy/AdvReac Type Severity Reaction Status Date / Time No Known Allergies Allergy Verified 05/04/21 15:15 Assessment & Plan Assessment & Plan (1) MDD (major depressive disorder): Status: Acute Code(s): F32.9 - Major depressive disorder, single episode, unspecified Assessment and Plan: adjustment disorder within MDD. continue home medications regimen for now: zyprexa, bupsar. SI resolved. referred into [place] system for housing help and for treatment of mental health concerns. [facility] made, awaiting word from them re acceptance. (2) Anxiety disorder, unspecified: Status: Acute Code(s): F41.9 - Anxiety disorder, unspecified Assessment and Plan: likely PTSD. continue home meds for now: zyprexa, buspar, klonopin, temazepam, topiramate. Greater than 50% of the session was spent on counseling and/or coordination of care Reason for contiued inpatient stay Substantial Risk for: harm to self, inability to function and rapid decompensation
[2021-06-05 18:00] VITALS: BP 131/67; PULSE 95; RESP 18; TEMP 35.9; O2SAT 96
[2021-06-05] MEDS: OLANZapine 5 MG TABLET PO (21:12)
[2021-06-05] MEDS: Temazepam 15 MG CAPSULE PO (21:29)
[2021-06-06 06:00] VITALS: BP 108/54; PULSE 84; RESP 16; TEMP 36.7; O2SAT 94
[2021-06-06] MEDS: Omeprazole 20 MG CAPSULE.DR PO (06:34)
[2021-06-06] MEDS: Topiramate 100 MG TABLET PO (08:51)
[2021-06-06] MEDS: busPIRone HCl 5 MG TABLET 15 MG PO ×3 (08:51→21:19)
[2021-06-06] MEDS: hydrOXYzine HCL 50 MG TABLET 100 MG PO ×2 (08:51→21:18)
[2021-06-06] MEDS: clonazePAM 0.5 MG TABLET PO ×3 (12:06→21:19)
--- NOTE | 2021-06-06 14:58 | P.PNPSI_ITS ---
Subjective Subjective Date of Service: 06/06/21 Reason For Visit: Agitation Interim History: pt lauds some staff here while also excoriating others. refers repeatedly to the havoc [facility] has wreaked upon the mental health of people. anticipating going to [facility] next week. c/o high anxiety today, which she is unable to place. states she is spending a lot of time in her room in bed b cse she is resting her brain. she does not feel groups here are very helpful for her. per staff, spending most of her time in bed, isolative to room. sleeping much. Mental Status Exam Mental Status Exam Narrative: pt resting in bed, covered by multiple blankets. no PMA/PMR. cooperative. speech, flattened. nml amount, nml latency. thoughts linear and logical, affect blunted. no SI/HI./AVH expressed. Diagnostics Vital Signs (24Hr): Vital Signs - 24 hr 06/05/21 18:00 06/06/21 06:00 Temperature 96.7 F L 98.0 F Pulse Rate 95 84 Respiratory Rate 18 16 Blood Pressure 131/67 108/54 L Pulse Oximetry 96 94 Body Mass Index 26.6 Labs Results: 06/01/21 03:37 06/01/21 03:37 Labs: Laboratory Results - last 48 hr 06/03/21 09:38 Vitamin B12 251 Folate 7.7 Medications Medications Current Medications Generic Name Dose Route Start Last Admin Trade Name Freq PRN Reason Stop Dose Admin Acetaminophen 650 mg 06/02/21 21:08 Acetaminophen 325 Mg Tablet PO Q6H PRN Headache/Pain Mild Scale (1-3) Al Hydroxide/Mg Hydroxide 30 ml 06/02/21 21:08 Magnesium Hydrox/Alum Hydrox 30 Ml Oral.Susp PO Q6H PRN Heartburn/Nausea Buspirone HCl 15 mg 06/01/21 15:00 06/06/21 14:48 Buspirone Hcl 5 Mg Tablet PO 15 mg TID JARVIS Administration Clonazepam 0.5 mg 06/06/21 11:47 06/06/21 12:06 Clonazepam 0.5 Mg Tablet PO 0.5 mg TID PRN Administration Anxiety Hydroxyzine HCl 100 mg 06/01/21 11:45 06/06/21 08:51 Hydroxyzine Hcl 50 Mg Tablet PO 100 mg BID JARVIS Administration Hydroxyzine HCl 25 mg 06/02/21 21:08 Hydroxyzine Hcl 25 Mg Tablet PO BEDTIME PRN Anxiety Ibuprofen 800 mg 06/01/21 11:40 Ibuprofen 800 Mg Tablet PO Q8H PRN Pain, Moderate (Pain Scale 4-6 Magnesium Hydroxide 30 ml 06/02/21 21:08 Milk Of Magnesia 30 Ml Oral.Susp PO DAILY PRN Constipation Olanzapine 5 mg 06/01/21 21:00 06/05/21 21:12 Olanzapine 5 Mg Tablet PO 5 mg BEDTIME JARVIS Administration Omeprazole 20 mg 06/01/21 11:45 06/06/21 06:34 Omeprazole 20 Mg Capsule. PO 20 mg DAILY@0630 JARVIS Administration Temazepam 15 mg 06/02/21 23:07 06/05/21 21:29 Temazepam 15 Mg Capsule PO 15 mg BEDTIME PRN Administration Sleep Topiramate 100 mg 06/04/21 09:00 06/06/21 08:51 Topiramate 100 Mg Tablet PO 100 mg DAILY JARVIS Administration Trazodone HCl 50 mg 06/02/21 21:08 Trazodone Hcl 50 Mg Tablet PO BEDTIME PRN Insomnia Allergies Allergies Allergy/AdvReac Type Severity Reaction Status Date / Time No Known Allergies Allergy Verified 05/04/21 15:15 Assessment & Plan Assessment & Plan (1) MDD (major depressive disorder): Status: Acute Code(s): F32.9 - Major depressive disorder, single episode, unspecified Assessment and Plan: adjustment disorder within MDD. continue home medications regimen for now: zyprexa, bupsar. SI resolved. referred into [place] system for housing help and for treatment of mental health concerns. [facility] , accepted for next wednesday admission. (2) Anxiety disorder, unspecified: Status: Acute Code(s): F41.9 - Anxiety disorder, unspecified Assessment and Plan: likely PTSD. continue home meds for now: zyprexa, buspar, klonopin, temazepam, topiramate. Greater than 50% of the session was spent on counseling and/or coordination of care Reason for contiued inpatient stay Substantial Risk for: harm to self, inability to function and rapid decompensation
[2021-06-06] MEDS: Temazepam 15 MG CAPSULE PO (21:18)
[2021-06-06] MEDS: OLANZapine 5 MG TABLET PO (21:18)
[2021-06-06 22:14] VITALS: BP 137/55; PULSE 86; TEMP 36.1
[2021-06-07 06:00] VITALS: BP 147/92; PULSE 94; RESP 20; TEMP 35.7; O2SAT 98
[2021-06-07] MEDS: Omeprazole 20 MG CAPSULE.DR PO (06:39)
[2021-06-07] MEDS: clonazePAM 0.5 MG TABLET PO ×3 (09:03→21:12)
[2021-06-07] MEDS: Topiramate 100 MG TABLET PO (09:04)
[2021-06-07] MEDS: hydrOXYzine HCL 50 MG TABLET 100 MG PO ×2 (09:04→21:13)
[2021-06-07] MEDS: busPIRone HCl 5 MG TABLET 15 MG PO ×3 (09:04→21:13)
[2021-06-07 20:37] VITALS: BP 111/53; PULSE 52; TEMP 36.3; O2SAT 98
[2021-06-07] MEDS: OLANZapine 5 MG TABLET PO (21:12)
[2021-06-07] MEDS: Temazepam 15 MG CAPSULE PO (21:13)
--- NOTE | 2021-06-08 04:35 | HO.PSYCHPN ---
Subjective Subjective Date of Service: 06/09/21 Reason For Visit: Agitation Interim History: Pt mostly in bed. She reports feeling anxious but affect appears much less distressed than reported mood. She denies SI/HI. She reports she is looking forward to discharged and in meantime plans to be mostly in bed. She had reported difficulty sleeping at night but per nursing, pt slept all night and also in bed most of the day. No behavioral concerns. Taking medications as prescribed. Review of Systems Review of Systems Pertinent positives and negatives as stated in HPI 10 point review of systems otherwise negative. Mental Status Exam Mental Status Exam Narrative: pt resting in bed, covered by multiple blankets. no PMA/PMR. cooperative. speech, flattened. nml amount, nml latency. thoughts linear and logical, affect blunted. no SI/HI./AVH expressed. Diagnostics Vital Signs (24Hr): Vital Signs - 24 hr 06/08/21 06:00 06/08/21 18:00 Temperature 96.1 F L 97.0 F Pulse Rate 91 78 Respiratory Rate 16 18 Blood Pressure 118/84 134/60 Pulse Oximetry 94 96 Body Mass Index 26.6 Labs Results: 06/01/21 03:37 06/01/21 03:37 Medications Medications Current Medications Generic Name Dose Route Start Last Admin Trade Name Freq PRN Reason Stop Dose Admin Acetaminophen 650 mg 06/02/21 21:08 Acetaminophen 325 Mg Tablet PO Q6H PRN Headache/Pain Mild Scale (1-3) Al Hydroxide/Mg Hydroxide 30 ml 06/02/21 21:08 Magnesium Hydrox/Alum Hydrox 30 Ml Oral.Susp PO Q6H PRN Heartburn/Nausea Buspirone HCl 15 mg 06/01/21 15:00 06/08/21 21:33 Buspirone Hcl 5 Mg Tablet PO 15 mg TID JARVIS Administration Clonazepam 0.5 mg 06/06/21 11:47 06/08/21 21:37 Clonazepam 0.5 Mg Tablet PO 0.5 mg TID PRN Administration Anxiety Hydroxyzine HCl 100 mg 06/01/21 11:45 06/08/21 21:33 Hydroxyzine Hcl 50 Mg Tablet PO 100 mg BID JARVIS Administration Hydroxyzine HCl 25 mg 06/02/21 21:08 Hydroxyzine Hcl 25 Mg Tablet PO BEDTIME PRN Anxiety Ibuprofen 800 mg 06/01/21 11:40 Ibuprofen 800 Mg Tablet PO Q8H PRN Pain, Moderate (Pain Scale 4-6 Magnesium Hydroxide 30 ml 06/02/21 21:08 Milk Of Magnesia 30 Ml Oral.Susp PO DAILY PRN Constipation Olanzapine 5 mg 06/01/21 21:00 06/08/21 21:33 Olanzapine 5 Mg Tablet PO 5 mg BEDTIME JARVIS Administration Omeprazole 20 mg 06/01/21 11:45 06/08/21 08:26 Omeprazole 20 Mg Capsule.Dr PO 20 mg DAILY@0630 JARVIS Administration Temazepam 15 mg 06/02/21 23:07 06/08/21 21:41 Temazepam 15 Mg Capsule PO 15 mg BEDTIME PRN Administration Sleep Topiramate 100 mg 06/04/21 09:00 06/08/21 08:26 Topiramate 100 Mg Tablet PO 100 mg DAILY JARVIS Administration Trazodone HCl 50 mg 06/02/21 21:08 Trazodone Hcl 50 Mg Tablet PO BEDTIME PRN Insomnia Allergies Allergies Allergy/AdvReac Type Severity Reaction Status Date / Time No Known Allergies Allergy Verified 05/04/21 15:15 Assessment & Plan Assessment & Plan (1) MDD (major depressive disorder): Status: Acute Code(s): F32.9 - Major depressive disorder, single episode, unspecified Assessment and Plan: adjustment disorder within MDD. continue home medications regimen for now: zyprexa, bupsar. SI resolved. referred into [place] system for housing help and for treatment of mental health concerns. [facility] , accepted for next wednesday admission. (2) Anxiety disorder, unspecified: Status: Acute Code(s): F41.9 - Anxiety disorder, unspecified Assessment and Plan: likely PTSD. continue home meds for now: zyprexa, buspar, klonopin, temazepam, topiramate. Greater than 50% of the session was spent on counseling and/or coordination of care Reason for contiued inpatient stay Substantial Risk for: stable for discharge
[2021-06-08 06:00] VITALS: BP 118/84; PULSE 91; RESP 16; TEMP 35.6; O2SAT 94
[2021-06-08] MEDS: hydrOXYzine HCL 50 MG TABLET 100 MG PO ×2 (08:26→21:33)
[2021-06-08] MEDS: busPIRone HCl 5 MG TABLET 15 MG PO ×3 (08:26→21:33)
[2021-06-08] MEDS: Topiramate 100 MG TABLET PO (08:26)
[2021-06-08] MEDS: Omeprazole 20 MG CAPSULE.DR PO (08:26)
[2021-06-08] MEDS: clonazePAM 0.5 MG TABLET PO ×3 (10:15→21:37)
[2021-06-08 18:00] VITALS: BP 134/60; PULSE 78; RESP 18; TEMP 36.1; O2SAT 96
[2021-06-08] MEDS: OLANZapine 5 MG TABLET PO (21:33)
[2021-06-08] MEDS: Temazepam 15 MG CAPSULE PO (21:41)
[2021-06-09 06:00] VITALS: BP 129/80; PULSE 95; RESP 16; TEMP 35.5; O2SAT 95
[2021-06-09] MEDS: Omeprazole 20 MG CAPSULE.DR PO (06:42)
[2021-06-09] MEDS: busPIRone HCl 5 MG TABLET 15 MG PO ×3 (08:06→21:34)
[2021-06-09] MEDS: Topiramate 100 MG TABLET PO (08:06)
[2021-06-09] MEDS: hydrOXYzine HCL 50 MG TABLET 100 MG PO ×2 (08:06→21:34)
--- NOTE | 2021-06-09 10:44 | P.PNPSI_ITS ---
Subjective Subjective Date of Service: 06/09/21 Reason For Visit: Agitation Interim History: Pt mostly in bed. She reports feeling anxious around planned discharge tomorrow. She denies SI/HI. She reports she is looking forward to discharged and in meantime plans to be mostly in bed. per staff, pt has been almost exlcusively in bed over the weekend. attended one group. Mental Status Exam Mental Status Exam Narrative: pt resting in bed, covered by multiple blankets. no PMA/PMR. coope rative. speech flattened prosody. nml amount, nml latency. thoughts linear and logical, affect blunted. no SI/HI. no AVH expressed. Diagnostics Vital Signs (24Hr): Vital Signs - 24 hr 06/08/21 18:00 06/09/21 06:00 Temperature 97.0 F 95.9 F L Pulse Rate 78 95 Respiratory Rate 18 16 Blood Pressure 134/60 129/80 Pulse Oximetry 96 95 Body Mass Index 26.6 Labs Results: 06/01/21 03:37 06/01/21 03:37 Medications Medications Current Medications Generic Name Dose Route Start Last Admin Trade Name Freq PRN Reason Stop Dose Admin Acetaminophen 650 mg 06/02/21 21:08 Acetaminophen 325 Mg Tablet PO Q6H PRN Headache/Pain Mild Scale (1-3) Al Hydroxide/Mg Hydroxide 30 ml 06/02/21 21:08 Magnesium Hydrox/Alum Hydrox 30 Ml Oral.Susp PO Q6H PRN Heartburn/Nausea Buspirone HCl 15 mg 06/01/21 15:00 06/09/21 08:06 Buspirone Hcl 5 Mg Tablet PO 15 mg TID JARVIS Administration Clonazepam 0.5 mg 06/06/21 11:47 06/08/21 21:37 Clonazepam 0.5 Mg Tablet PO 0.5 mg TID PRN Administration Anxiety Hydroxyzine HCl 100 mg 06/01/21 11:45 06/09/21 08:06 Hydroxyzine Hcl 50 Mg Tablet PO 100 mg BID JARVIS Administration Hydroxyzine HCl 25 mg 06/02/21 21:08 Hydroxyzine Hcl 25 Mg Tablet PO BEDTIME PRN Anxiety Ibuprofen 800 mg 06/01/21 11:40 Ibuprofen 800 Mg Tablet PO Q8H PRN Pain, Moderate (Pain Scale 4-6 Magnesium Hydroxide 30 ml 06/02/21 21:08 Milk Of Magnesia 30 Ml Oral.Susp PO DAILY PRN Constipation Olanzapine 5 mg 06/01/21 21:00 06/08/21 21:33 Olanzapine 5 Mg Tablet PO 5 mg BEDTIME JARVIS Administration Omeprazole 20 mg 06/01/21 11:45 06/09/21 06:42 Omeprazole 20 Mg Capsule.Dr PO 20 mg DAILY@0630 JARVIS Administration Temazepam 15 mg 06/02/21 23:07 06/08/21 21:41 Temazepam 15 Mg Capsule PO 15 mg BEDTIME PRN Administration Sleep Topiramate 100 mg 06/04/21 09:00 06/09/21 08:06 Topiramate 100 Mg Tablet PO 100 mg DAILY JARVIS Administration Trazodone HCl 50 mg 06/02/21 21:08 Trazodone Hcl 50 Mg Tablet PO BEDTIME PRN Insomnia Allergies Allergies Allergy/AdvReac Type Severity Reaction Status Date / Time No Known Allergies Allergy Verified 05/04/21 15:15 Assessment & Plan Assessment & Plan (1) MDD (major depressive disorder): Status: Acute Code(s): F32.9 - Major depressive disorder, single episode, unspecified Assessment and Plan: adjustment disorder within MDD. continue home medications regimen for now: zyprexa, bupsar. SI resolved. referred into [place] system for housing help and for treatment of mental health concerns. [facility] , accepted for 06/10 admission.. (2) Anxiety disorder, unspecified: Status: Acute Code(s): F41.9 - Anxiety disorder, unspecified Assessment and Plan: likely PTSD. continue home meds for now: zyprexa, buspar, klonopin, temazepam, topiramate. Greater than 50% of the session was spent on counseling and/or coordination of care Reason for contiued inpatient stay Substantial Risk for: harm to self
[2021-06-09] MEDS: clonazePAM 0.5 MG TABLET PO ×2 (12:00→18:02)
[2021-06-09 12:55] LABS: COVID-19 Test Negative (Negative); IDNOW Serial# 9DD0AD1C
--- NOTE | 2021-06-09 12:59 | MHC.CLN ---
FOLLOW UP PER CONVERSATION WITH PATIENT, EATING VERY WELL. ATE 100% OF BREAKFAST TODAY. PLEASED WITH FOOD AND MEAL CHOICES. NO NUTRITIONAL PROBLEMS IDENTIFIED,
[2021-06-09 20:52] VITALS: BP 108/55; PULSE 79; RESP 18; TEMP 35.6; O2SAT 97
[2021-06-09] MEDS: OLANZapine 5 MG TABLET PO (21:34)
[2021-06-09] MEDS: Temazepam 15 MG CAPSULE PO (21:34)
[2021-06-10] MEDS: clonazePAM 0.5 MG TABLET PO ×2 (00:59→08:12)
[2021-06-10 06:00] VITALS: BP 147/80; PULSE 80; RESP 18; TEMP 36.2; O2SAT 98
[2021-06-10] MEDS: Omeprazole 20 MG CAPSULE.DR PO (06:47)
[2021-06-10] MEDS: busPIRone HCl 5 MG TABLET 15 MG PO (08:11)
[2021-06-10] MEDS: hydrOXYzine HCL 50 MG TABLET 100 MG PO (08:11)
[2021-06-10] MEDS: Topiramate 100 MG TABLET PO (08:12)
--- NOTE | 2021-06-10 10:16 | P.DS_ITS ---
DS: Providers Provider Date of Service: 06/10/21 Date of admission: 06/02/21 21:08 Primary care physician: Unknown Physician DS: Diagnosis Discharge Diagnosis (1) MDD (major depressive disorder): Status: Acute (2) Anxiety disorder, unspecified: Status: Acute DS: Medications Discharge Medications Home Medications: Previous Rx's Medication Instructions Recorded buspirone 15 mg PO TID 30 Days #270 tab 06/10/21 clonazepam 0.5 mg PO DAILY PRN 30 Days #30 tab 06/10/21 hydroxyzine HCl 100 mg PO BID 30 Days #120 tab 06/10/21 ibuprofen 800 mg PO Q8H PRN 30 Days #90 tab 06/10/21 olanzapine 5 mg PO BEDTIME 30 Days #30 tab 06/10/21 omeprazole 20 mg PO DAILY@0630 30 Days #30 cap 06/10/21 temazepam 15 mg PO BEDTIME PRN 30 Days #30 06/10/21 cap topiramate 100 mg PO DAILY 30 Days #30 tab 06/10/21 Mental Status Exam Mental Status Exam Narrative: appropriately dressed and groomed. no PMA/PMR/ cooperative. speech nml rate, amount, loudness, tone, latency. thoughts linear and logical. affect full range, normo-intense, non-labile. mood happy, thrilled, excited, nervous. denies SI/HI/AVH. Data Data Completed and Pending Completed studies during hospitalization [Text1]: 06/03/21 06/03/21 06/09/21 09:38 09:38 12:20 Triglycerides 172 Cholesterol 226 D LDL Cholesterol, Calc 142 HDL Cholesterol 50 Vitamin B12 251 Folate 7.7 TSH 3.90 COVID-19 ([facility]) Negative COVID-19 Clin Com See Note DS: Summary Hospital Course Hospital Course: marisela Santiago MD 06/03 H&P: pt reports she moved up to [place], [place] she is from, from [place], where [place] had lived for 20 years, to help her sister and because [place] gotten [place]. she states her sister recently lost her and has a large house to take care of. she states that a week ago sister demanded she leave - she has no idea why, thinks her sister just didn't like her living there - and she had been living in a hotel since. this is her first time being homeless and she feels in extremis. she is looking first and foremost for housing, and then to get a handle on her anxiety. she denies current SI, saying she most recently experienced it 4 days ago. her sister had said she was going to pick her up that day and take her back to the house and then suddenly changed her mind, provoking the SI/SA. Past Psychiatric History: psych hosps: this is patient's second psychiatric hospitalization. SA: denies. reports she took a bunch of pills irrationally and then immediately called for help. SIB: denies h/o childhood physical and sexual abuse per CARE team report, pt has had multiple previous psych hosps, as well as substance abuse treatment. per Jack VALDEZ 06/04 Progress Note: pt reports her mood is up and down, feeling safe. met with SW, working on transfer to [facility] program. no other complaints or requests. per staff, safe on unit. homeless, fatigued, quiet. no SI/HI. per Jack VALDEZ 06/05 Progress Note: pt reports her mood is OK, feeling safe. working on transfer to [facility] program - likely won't receive word until sometime next week. reports poor sleep last night, explains that just happens sometimes, declines any med changes. no other complaints or requests. per staff, spending most of her time in bed, isolative to room. sleeping much, took PRN klonopin last noc. per Jack VALDEZ 06/06 Progress Note: pt lauds some staff here while also excoriating others. refers repeatedly to the havoc COVID has wreaked upon the mental health of people. anticipating going to [facility] next week. c/o high anxiety today, which she is unable to place. states she is spending a lot of time in her room in bed bcse she is resting her brain. she does not feel groups here are very helpful for her. per staff, spending most of her time in bed, isolative to room. sleeping much. per Jack VALDEZ 06/09 Progress Note: Pt mostly in bed. She reports feeling anxious around planned discharge tomorrow. She denies SI/HI. She reports she is looking forward to discharge and in meantime plans to be mostly in bed. per staff, pt has been almost exclusively in bed over the weekend. attended one group. 06/10: pt excited to discharge today, but also nervous. up and about this morning, met with pt outside of her room for the first time this admission. optimistic, future-oriented. taking cab [facility] at 1100. Time Spent with Patient Time attestation: Total time spent providing and/or coordinating discharge services: Discharge Plan Discharge Patient Disposition: Home, Self-Care Discharge Diagnosis: Major Depressive Disorder, Recurrent, Moderate Referrals: [facility] - Follow up Care [Other] - 1 Week Physician,Unknown [Primary Care Provider] - 1 Week (All services will be provided at program including PCP. Discharge summary faxed to [facility] [phone].) Discharge Medications: New buspirone 5 mg Tablet 15 mg PO TID 30 Days Qty: 270 RF: 0 ibuprofen 800 mg Tablet 800 mg PO Q8H PRN (Reason: Pain, Moderate (Pain Scale 4-6) 30 Days Qty: 90 RF: 0 clonazepam 0.5 mg Tablet 0.5 mg PO DAILY PRN (Reason: Anxiety) 30 Days Qty: 30 RF: 0 olanzapine 5 mg Tablet 5 mg PO BEDTIME 30 Days Qty: 30 RF: 0 hydroxyzine HCl 50 mg Tablet 100 mg PO BID 30 Days Qty: 120 RF: 0 temazepam 15 mg Capsule 15 mg PO BEDTIME PRN (Reason: Sleep) 30 Days Qty: 30 RF: 0 omeprazole 20 mg Capsule,Delayed Release(Dr/Ec) 20 mg PO DAILY@0630 30 Days Qty: 30 RF: 0 topiramate 100 mg Tablet 100 mg PO DAILY 30 Days Qty: 30 RF: 0 Discontinued temazepam 15 mg Capsule 15 mg PO BEDTIME PRN (Reason: Anxiety) RF: 0 ibuprofen 800 mg Tablet 800 mg PO Q8H PRN (Reason: Pain, Moderate (Pain Scale 4-6) 30 Days Qty: 60 RF: 0 clonazepam 0.5 mg Tablet 0.5 mg PO TID PRN (Reason: Anxiety) 30 Days Qty: 90 RF: 0 olanzapine 5 mg Tablet 5 mg PO BEDTIME 30 Days Qty: 30 RF: 0 hydroxyzine HCl 50 mg Tablet 100 mg PO BID 30 Days Qty: 120 RF: 0 omeprazole 20 mg Capsule,Delayed Release(Dr/Ec) 20 mg PO DAILY@0630 30 Days Qty: 30 RF: 0 topiramate 200 mg Tablet 200 mg PO DAILY 30 Days Qty: 60 RF: 0 buspirone 15 mg Tablet 15 mg PO TID 30 Days Qty: 90 RF: 0 Discharge Orders: Discharge Order (Routine); Ordered 06/10/21 Ordered By: Regulo Santiago Diet: advance to usual diet Activity on Discharge: As tolerated Stand Alone Forms: Patient Portal Discharge page, Community Support Care Plan Goals: maintain independent living, find housing in the community Health Concerns: none Plan of Treatment: continue to take medications as prescribed, attend appointments as scheduled, work [employer] staff to obtain housing. Assessment: safe for discharge to outpatient care Discharge Date/Time: 06/10/21 11:17
== END 2021-06-10 11:17 | disposition home or self-care (01) | DRG 885 ==
LOC: HO.ED 14:56 → HO.PADLT16 06-02 21:38
PROVIDERS: Psychiatry & Neurology Psychiatry; Admitting Provider Social Worker; Emergency Provider Student in an Organized Health Care Education/Training Program; Visit Provider Social Worker
DX: F33.1 Major depressive disorder, recurrent, moderate (principal); Z20.822 Contact with and (suspected) exposure to COVID-19; F41.9 Anxiety disorder, unspecified; F43.10 Post-traumatic stress disorder, unspecified; Z87.891 Personal history of nicotine dependence; Z79.1 Long term (current) use of non-steroidal anti-inflammatories (NSAID); Z79.899 Other long term (current) drug therapy
CPT/HCPCS: 36415; 80053; 80061; 80143; 80179; 80307; 81003; 82077; 82607; 82746; 83036; 84443; 85025; 87635; 93005; 99285